=== PATIENT | male | born 1955 | race Caucasian/White ===

== ENCOUNTER 2021-03-03 15:07 | Emergency (ER) | payer OTHER, SELFPAY ==
[2021-03-03] VITALS (9 sets, daily range): BP systolic 141–174; BP diastolic 72–90; PULSE 47–63; RESP 16–18; TEMP 36.8; O2SAT 97–98; BMI 23.2
--- NOTE | 2021-03-03 15:39 | ED_ITS ---
Documented by User: MARGARETTE Uriostegui 03/05/21 07:04 HPI - Abdominal Pain General: Chief Complaint: Abdominal Pain Stated Complaint: ABD PAIN, CONSTIPATION Time Seen by Provider: 03/03/21 15:15 Source: patient Mode of arrival: ambulatory Limitations: no limitations History of Present Illness: HPI narrative: Patient is a very pleasant 65-year-old male who presents to ED today with a complaint of left-sided abdominal pain and changing caliber of his stools. Patient tells me he has had intermittent abdominal pains over the past 9 months. He states he has mentioned this to medical providers previously but nobody has ever wanted to do anything about it . He tells me he often feels like the left side of his abdomen is bloated. He gets some relief after a bowel movement. He tells me his bowel movements are pencil thin . He has not noticed any black or tarry stools. No obviously bloody stools. He does not complain of painful defecation. He reports over the last 2 weeks he has not had much of an appetite and has noticed weight loss. He is not having any vomiting. Patient tells me 12 years ago he had a colonoscopy in which several cancerous polyps were identified and removed. Patient tells me he was supposed to follow-up annually but works a lot and has not done so. MD elicited complaint: abdominal pain Pertinent past history: other (reports history of cancerous polyps ) Onset (ago): month(s) Pain Consistency: colicky Location: LLQ Severity: severe Quality: cramping and other (bloating) Radiation: none Migration to: no migration Exacerbating factors: eating Relieving factors: bowel movement Associated Symptoms: Reports bloating, GI cramping and other (weight loss ); Denies chills, dysuria, fever(s), hematochezia, hematemesis, melena, nausea and vomiting Review of Systems Const: Reports: change in appetite and change in weight; Denies: fever(s), chills, body aches, fatigue, malaise or night sweats Eyes: Denies: change in vision ENMT: Denies: throat pain or odynophagia Card: Denies: chest pain Resp: Denies: dyspnea GI: Reports: abdominal pain, bloating, GI cramping and other (weight loss ); Denies: nausea, vomiting, hematemesis, rectal swelling, hematochezia or melena : Denies: flank pain or dysuria Musc: Denies: neck pain, back pain, extremity pain or joint pain Skin/Breast: Denies: rash Neuro: Denies: headache(s) Physical Exam Const: COMMON NORMALS: no acute distress, average body habitus, patient oriented x3, no limitations, healthy appearing, alert and well nourished GENERAL APPEARANCE: cooperative ORIENTATION/CONSCIOUSNESS: Yes awake, Yes oriented to person, Yes oriented to place and Yes oriented to time HENMT: COMMON NORMALS: normocephalic and atraumatic HEAD & SCALP: normocephalic and atraumatic Resp: COMMON NORMALS: normal respiratory effort and clear to auscultation bilaterally AUSCULTATION: clear to auscultation bilaterally Cardio: COMMON NORMALS: regular rate and regular rhythm RATE: regular rate RHYTHM: regular rhythm GI: COMMON NORMALS: Normal to inspection, nondistended, normoactive bowel sounds present, Soft to palpation, No hepatosplenomegaly present and no masses PALPATION: Yes Soft to palpation, Yes Tenderness to palpation present (GI) (pain throughout L side of abdomen) and Yes No hepatosplenomegaly present Extremity: COMMON NORMALS: normal to inspection Neuro: COMMON NORMALS: patient oriented x3 SENSORIUM/ORIENTATION: Yes alert, Yes oriented to person, Yes oriented to place and Yes oriented to time Skin: COMMON NORMALS: no rashes or lesions noted GENERAL SKIN EXAM: no rashes or lesions noted Course Vital Signs: Vital signs: Vital Signs Temperature 98.2 F 03/03/21 15:23 Pulse Rate 54 L 03/03/21 19:46 Respiratory Rate 18 03/03/21 19:46 Blood Pressure 163/90 03/03/21 19:46 Pulse Oximetry 98 03/03/21 19:46 MDM - Abdominal Pain MDM Narrative: Medical decision making narrative: Care transferred to Henrry Fish PA-C pending remainder of labs and CT imaging. Plan will include urgent colonoscopy once/if patient stable for DC from ED. Lab Data: Labs: Lab Results 03/03/21 03/03/21 03/03/21 Range/Units 15:45 16:00 16:00 WBC 8.8 (4.0-10.0) 10^3/ uL RBC 4.98 (4.1-5.3) 10^6/u L Hgb 14.6 (11.7-16.6) g/dL Hct 45.2 (42.0-52.0) % MCV 90.8 (80-94) fl MCH 29.3 (28.0-34.0) pg MCHC 32.3 (30.0-36.0) g/dL RDW 13.2 (12.1-15.1) % Plt Count 226 (130-400) 10^3/c mm MPV 11.9 H (7.4-10.4) fL Neut % (Auto) 66.9 % Lymph % (Auto) 25.0 % Hodgeman % (Auto) 6.1 % Eos % (Auto) 1.4 % Baso % (Auto) 0.3 % Neut # (Auto) 5.88 (1.8-7.7) 10^3/u L Lymph # (Auto) 2.2 (0.8-4.8) 10^3/u L Hodgeman # (Auto) 0.5 (0.2-0.9) 10^3/u L Eos # (Auto) 0.1 (0.0-0.8) 10^3/u L Baso # (Auto) 0.0 (0.0-0.1) 10^3/u L Nucleated RBC % (a uto) 0 % Nucleated RBCs # 0.0 /100WBC Sodium 140 (136-145) mmol/L Potassium 4.4 (3.5-5.1) mmol/L Chloride 105 (98-107) mmol/L Carbon Dioxide 25 (22-29) mmol/L Anion Gap 14.4 (5-19) BUN 15 (8-23) mg/dL Creatinine 0.9 (0.7-1.2) mg/dL GFR Calculation 85.0 L (90-130) mL/min Glucose 89 (65-115) mg/dL Calculated Osmolal ity 290 (285-295) mOsm/k g Calcium 9.5 (8.5-10.5) mg/dL Total Bilirubin 0.2 (0.15-1.2) mg/dL AST 14 (0-40) U/L ALT 19 (0-41) U/L Alkaline Phosphata se 145 H (40-130) IU/L Total Protein 6.6 (6.6-8.7) g/dL Albumin 4.3 (3.5-5.2) g/dL Globulin 2.3 (1.3-4.6) g/dL Lipase 21 (13-60) U/L Urine Color Straw (Yellow) Urine Appearance Clear (CLEAR) Urine pH 7 (5-7) Ur Specific Gravit y 1.005 (1.005-1.030) Urine Protein Neg (Negative) Urine Glucose (UA) Norm (Normal) Urine Ketones Negative (Negative) Urine Blood Neg (Negative) Urine Nitrate Negative (Negative) Urine Bilirubin Neg (Negative) Urine Urobilinogen Norm (Negative) mg/dL Ur Leukocyte Kaitlyn ase Negative (Negative) Discharge Plan Discharge Patient Disposition: Home Clinical Impression: Abdominal pain Qualifiers: Abdominal location: left lower quadrant Qualified Code(s): R10.32 - Left lower quadrant pain Constipation Qualifiers: Constipation type: unspecified constipation type Qualified Code(s): K59.00 - Constipation, unspecified Condition: Stable Prescriptions: New ondansetron 4 mg tablet,disintegrating 4 mg PO Q8H PRN (Reason: nausea and vomiting) Qty: 20 RF: 0 Miralax 17 gram/dose powder 17 g PO DAILY PRN (Reason: constipation) Qty: 119 RF: 0 No Action Pacerone 200 mg tablet 200 mg PO DAILY RF: 0 lisinopril 20 mg tablet 20 mg PO DAILY RF: 0 Aspir-81 81 mg Tablet,Delayed Release (Dr/Ec) 81 mg PO DAILY RF: 0 diltiazem HCl 120 mg capsule,extended release 24hr 120 mg PO DAILY RF: 0 Eliquis 5 mg tablet 5 mg PO DAILY RF: 0 Discharge Orders: Discharge ED (Routine); Ordered 03/03/21 Ordered By: Henrry Fish Referrals: Jason Toscano MD [Primary Care Provider] - Discharge Diet: Advance as tolerated Discharge Activity: Increase activity as tolerated Patient Instructions: Abdominal Pain (ED), Opioid Safety Activity Restrictions/Additional Instructions: Follow-up with medical provider as directed in 5 days for reevaluation. Case management will be contacting you in the next several days to set up an appointm ent with general surgeon for colonoscopy. Sending you home with [facility] to help clear out bowels. Take medications as prescribed. Continue taking your daily stool softener as well to help with bowel movements. Make sure to drink plenty of fluids and stay hydrated. Return to the ER or your medical provider if condition worsens. Please read and understand discharge instructions. Thank you for choosing [facility] for your healthcare needs today. Please realize this is an emergency room and that we are providing you with a medical screening exam and this may not be complete and all inclusive of all the testing and or work up that you may need to determine your ailment or severity of your illness. It is very important that you follow up as instructed or that you return to the Emergency Department should you have concerns or if your condition changes or worsens in any way. Sign Out Sign Out Data: Patient Sign Out occurred on 03/03/21 at 17:09. Patient's care was discussed, and care was transferred from to MARGARETTE Clemens. Coding Level of Care Code ED Mineral Mixer for Chg Fwd Exam Detailed Documented by User: MARGARETTE Clemens 03/03/21 23:29 HPI - Abdominal Pain General: Chief Complaint: Abdominal Pain Stated Complaint: ABD PAIN, CONSTIPATION Time Seen by Provider: 03/03/21 15:15 Course Vital Signs: Vital signs: Vital Signs Temperature 98.2 F 03/03/21 15:23 Pulse Rate 54 L 03/03/21 19:46 Respiratory Rate 18 03/03/21 19:46 Blood Pressure 163/90 03/03/21 19:46 Pulse Oximetry 98 03/03/21 19:46 MDM - Abdominal Pain MDM Narrative: Medical decision making narrative: I took over patient case from Rosita Palacios the physician doctor assistant. She performed the initial history physical exam lab and imaging work-up. I took over patient case the CT of the abdomen was pending. Patient is a 65-year-old male comes to the ED with some abdominal pain and constipation. He has a history of having polyps's from his last colonoscopy 12 years ago and was told to have yearly colonoscopies, but patient has not had any colonoscopy over the last 12 years. He is currently having pencil thin stools but denies any blood or dark-colored stools. Patient appears nontoxic and in no acute distress. Patient has some tenderness to palpation of the abdomen on the left side. Vitals are stable. All labs were unremarkable. CT of abdomen pelvis showed no acute findings but did note an area of narrowing in the transverse colon near the splenic flexure. Radiologist thought it could be transient peristalsis but colonoscopy needed for further evaluation of possible lesion. I discussed CT findings with patient and told him that he needs to get a colonoscopy as soon as possible for further evaluation. I placed an order with case management for patient to be referred to general surgery for colonoscopy and I noted that patient should have one as soon as possible. Patient diagnosed with abdominal pain and constipation and he was discharged home with magnesium citrate and told to take that tonight or tomorrow to help with bowel movements. He was also sent home with a prescription for Zofran MiraLAX and Percocet for pain. I told patient follow-up with his PCP in 7 to 10 days reevaluation. Case management will be contacting him in the next several days set up an appointment with general surgery for colonoscopy. Return to ED precautions given. Patient steady with plan. Lab Data: Attestation: I reviewed the patient's lab results. Labs: Lab Results 03/03/21 03/03/21 03/03/21 Range/Units 15:45 16:00 16:00 WBC 8.8 (4.0-10.0) 10^3/ uL RBC 4.98 (4.1-5.3) 10^6/u L Hgb 14.6 (11.7-16.6) g/dL Hct 45.2 (42.0-52.0) % MCV 90.8 (80-94) fl MCH 29.3 (28.0-34.0) pg MCHC 32.3 (30.0-36.0) g/dL RDW 13.2 (12.1-15.1) % Plt Count 226 (130-400) 10^3/c mm MPV 11.9 H (7.4-10.4) fL Neut % (Auto) 66.9 % Lymph % (Auto) 25.0 % Hodgeman % (Auto) 6.1 % Eos % (Auto) 1.4 % Baso % (Auto) 0.3 % Neut # (Auto) 5.88 (1.8-7.7) 10^3/u L Lymph # (Auto) 2.2 (0.8-4.8) 10^3/u L Hodgeman # (Auto) 0.5 (0.2-0.9) 10^3/u L Eos # (Auto) 0.1 (0.0-0.8) 10^3/u L Baso # (Auto) 0.0 (0.0-0.1) 10^3/u L Nucleated RBC % (a uto) 0 % Nucleated RBCs # 0.0 /100WBC Sodium 140 (136-145) mmol/L Potassium 4.4 (3.5-5.1) mmol/L Chloride 105 (98-107) mmol/L Carbon Dioxide 25 (22-29) mmol/L Anion Gap 14.4 (5-19) BUN 15 (8-23) mg/dL Creatinine 0.9 (0.7-1.2) mg/dL GFR Calculation 85.0 L (90-130) mL/min Glucose 89 (65-115) mg/dL Calculated Osmolal ity 290 (285-295) mOsm/k g Calcium 9.5 (8.5-10.5) mg/dL Total Bilirubin 0.2 (0.15-1.2) mg/dL AST 14 (0-40) U/L ALT 19 (0-41) U/L Alkaline Phosphata se 145 H (40-130) IU/L Total Protein 6.6 (6.6-8.7) g/dL Albumin 4.3 (3.5-5.2) g/dL Globulin 2.3 (1.3-4.6) g/dL Lipase 21 (13-60) U/L Urine Color Straw (Yellow) Urine Appearance Clear (CLEAR) Urine pH 7 (5-7) Ur Specific Gravit y 1.005 (1.005-1.030) Urine Protein Neg (Negative) Urine Glucose (UA) Norm (Normal) Urine Ketones Negative (Negative) Urine Blood Neg (Negative) Urine Nitrate Negative (Negative) Urine Bilirubin Neg (Negative) Urine Urobilinogen Norm (Negative) mg/dL Ur Leukocyte Kaitlyn ase Negative (Negative) Imaging Data ^: CT Abd/Pel: Attestation: I personally reviewed and interpreted this imaging study as follows: Radiologist's impression: [facility] [address] [place] [address] CT Scan Report Signed Patient: Luke Andrade Unit #: [id number] : [id number] ct#:[id number] Age/Sex: 65 / M ADM Date: 03/03/21 Loc: ER Room/Bed: Attending Dr: Ordering Provider/Ordering MD: Rosita Palacios Date of Service: 03/03/21 Procedure(s): CT abdomen pelvis w con* [id number] Accession Number(s): [id number] Report Number: [id number] PROCEDURE INFORMATION: Exam: CT Abdomen And Pelvis With Contrast Exam date and time: 03/03/2021 3:39 PM Age: 65 years old Clinical indication: Nausea; Abdominal pain; Localized; Left lower quadrant (llq); Prior surgery; Additional info: L abdominal pain; Change in caliber of stools TECHNIQUE: Imaging protocol: Computed tomography of the abdomen and pelvis with contrast. Radiation optimization: All CT scans at this facility use at least one of these dose optimization techniques: automated exposure control; mA and/or kV adjustment per patient size (includes targeted exams where dose is matched to clinical indication); or iterative reconstruction. Contrast material: OMNI 300; Contrast volume: 95 ml; Contrast route: INTRAVENOUS (IV); COMPARISON: No relevant prior studies available. RADIATION DOSE METRICS: Total DLP (mGy-cm): 1308.84 FINDINGS: Liver: Subcentimeter low-attenuation of the left hepatic lobe, too small to characterize on CT, most likely a small cyst. Gallbladder and bile ducts: Normal. No calcified stones. No ductal dilation. Pancreas: Normal. No ductal dilation. Spleen: Normal. No splenomegaly. Adrenal glands: Normal. No mass. Kidneys and ureters: 1 cm exophytic simple cyst along the mid aspect of the left kidney. Additional subcentimeter cysts are scattered within both kidneys. Stomach and bowel: Colonic diverticulosis without findings to suggest acute diverticulitis. There is focal narrowing in the transverse colon at the splenic flexure series 2, image 21. No evidence of obstruction. Appendix: No evidence of appendicitis. Intraperitoneal space: Unremarkable. No free air. No significant fluid collection. Vasculature: Moderate scattered calcified and noncalcified atherosclerotic plaque noted within the abdominal aorta and its distal branches. No significant narrowing or occlusion. Lymph nodes: Unremarkable. No enlarged lymph nodes. Urinary bladder: Mild circumferential wall thickening of the bladder. There is no perivesicular inflammation. The prostate is enlarged. Findings likely reflect sequela of chronic bladder outlet obstruction. Reproductive: See Urinary bladder finding. Bones/joints: No acute fracture. Soft tissues: Suspected sequela of right inguinal hernia repair. CT/CT abdomen pelvis w con* [id number] IMPRESSION: 1. No acute abdominal/pelvic findings. Colonic diverticulosis without findings to suggest acute diverticulitis. 2. There is focal narrowing in the transverse colon at the splenic flexure. Most likely this relates to transient peristalsis, however, given clinical history please ensure patient is up to date on colonoscopy to exclude underlying lesion. 3. Enlarged prostate and mild circumferential bladder wall thickening, imaging appearance is suggestive of chronic bladder outlet obstruction. COMMENTS: Consistent with the [employer]'s Incidental Findings Committee white paper (J Am Yaneth Radiol 2018): Any incidental renal lesion less than 1 cm or classified as too small to characterize, or any incidental cystic renal lesion characterized as simple-appearing, is likely benign. No follow-up imaging is recommended for these lesions per consensus recommendations based on imaging criteria. Radiation Dose CTDIVOL = (mGy): DLP = 1308.84 (mGy-cm) Dictated By: Uriah Conway DO Signed By: Uriah Conway DO Signed Date/Time: 03/03/211823 DD/ 22 Discharge Plan Discharge Patient Disposition: Home Clinical Impression: Abdominal pain Qualifiers: Abdominal location: left lower quadrant Qualified Code(s): R10.32 - Left lower quadrant pain Constipation Qualifiers: Constipation type: unspecified constipation type Qualified Code(s): K59.00 - Constipation, unspecified Condition: Stable Prescriptions: New ondansetron 4 mg tablet,disintegrating 4 mg PO Q8H PRN (Reason: nausea and vomiting) Qty: 20 RF: 0 Miralax 17 gram/dose powder 17 g PO DAILY PRN (Reason: constipation) Qty: 119 RF: 0 No Action Pacerone 200 mg tablet 200 mg PO DAILY RF: 0 lisinopril 20 mg tablet 20 mg PO DAILY RF: 0 Aspir-81 81 mg Tablet,Delayed Release (Dr/Ec) 81 mg PO DAILY RF: 0 diltiazem HCl 120 mg capsule,extended release 24hr 120 mg PO DAILY RF: 0 Eliquis 5 mg tablet 5 mg PO DAILY RF: 0 Discharge Orders: Discharge ED (Routine); Ordered 03/03/21 Ordered By: Henrry Fish Referrals: Jason Toscano MD [Primary Care Provider] - Discharge Diet: Advance as tolerated Discharge Activity: Increase activity as tolerated Patient Instructions: Abdominal Pain (ED), Opioid Safety Activity Restrictions/Additional Instructions: Follow-up with medical provider as directed in 5 days for reevaluation. Case management will be contacting you in the next several days to set up an appointment with general surgeon for colonoscopy. Sending you home with mag citrate to help clear out bowels. Take medications as prescribed. Continue taking your daily stool softener as well to help with bowel movements. Make sure to drink plenty of fluids and stay hydrated. Return to the ER or your medical provider if condition worsens. Please read and understand discharge instructions. Thank you for choosing [facility] for your healthcare needs today. Please realize this is an emergency room and that we are providing you with a medical screening exam and this may not be complete and all inclusive of all the testing and or work up that you may need to determine your ailment or severity of your illness. It is very important that you follow up as instructed or that you return to the Emergency Department should you have concerns or if your condition changes or worsens in any way. Sign Out Sign Out Data: Patient Sign Out occurred on 03/03/21 at 17:09. Patient's care was discussed, and care was transferred from to MARGARETTE Clemens. Coding Level of Care Code ED Mineral Mixer for Chg Fwd Exam Detailed
[2021-03-03] MEDS: morphine 4 mg/mL SDV 1 mL IVP (15:55)
[2021-03-03] MEDS: ondansetron 2 mg/ML SDV 2 mL 4 MG IVP (15:57)
[2021-03-03 16:08] LABS: Basophils % 0.3 %; Eosinophils # 0.1 10^3/uL (0.0-0.8); Eosinophils % 1.4 %; Hematocrit 45.2 % (42.0-52.0); Hemoglobin 14.6 g/dL (11.7-16.6); Lymphocytes # 2.2 10^3/uL (0.8-4.8); Mean Corpuscular HGB Conc 32.3 g/dL (30.0-36.0); Mean Corpuscular Hemoglobin 29.3 pg (28.0-34.0); Mean Corpuscular Volume 90.8 fl (80-94); Mean Platelet Volume 11.9 fL (7.4-10.4); Monocytes # 0.5 10^3/uL (0.2-0.9); Monocytes % 6.1 %; Neutrophils # 5.88 10^3/uL (1.8-7.7); Neutrophils % 66.9 %; Nucleated Red Blood Cells % 0 %; Platelet Count 226 10^3/cmm (130-400); Red Blood Count 4.98 10^6/uL (4.1-5.3); Red Cell Distribution Width 13.2 % (12.1-15.1); White Blood Count 8.8 10^3/uL (4.0-10.0)
[2021-03-03 16:12] LABS: Add Urine Microscopic? NO; Charge for UA Resulting for Rev
[2021-03-03 16:24] LABS: Bilirubin Urine Neg (Negative); Blood Urine Neg (Negative); Glucose Urine UA Norm (Normal); Ketones Urine Negative (Negative); Leukocyte Esterase Urine Negative (Negative); Nitrate Urine Negative (Negative); Protein Urine Neg (Negative); Specific Gravity, Urine 1.005 (1.005-1.030); Urine Appearance Clear (CLEAR); Urine Color Straw (Yellow); Urobilinogen Urine Norm (Negative); pH Urine 7 (5-7)
[2021-03-03 16:31] LABS: Alanine Aminotransferase 19 U/L (0-41); Albumin Level 4.3 g/dL (3.5-5.2); Alkaline Phosphatase 145 IU/L (40-130); Anion Gap 14.4 (5-19); Aspartate Amino Transferase 14 U/L (0-40); Blood Urea Nitrogen 15 mg/dL (8-23); Calcium 9.5 mg/dL (8.5-10.5); Carbon Dioxide 25 mmol/L (22-29); Chloride 105 mmol/L (98-107); Creatinine Clr Calc Pharmacy 96.3605; Globulin 2.3 g/dL (1.3-4.6); Glucose 89 mg/dL (65-115); Lipase 21 U/L (13-60); Osmolality Calculated 290 mOsm/kg (285-295); Potassium 4.4 mmol/L (3.5-5.1); Sodium 140 mmol/L (136-145); Total Bilirubin 0.2 mg/dL (0.15-1.2); Total Protein 6.6 g/dL (6.6-8.7)
[2021-03-03] MEDS: iohexol 300 mg/mL 100 mL Btl IV (17:37)
[2021-03-03] MEDS: acetaminophen 1,000 MG/100 ML PIGGYBACK 400 MG IV (18:07)
[2021-03-03] MEDS: oxyCODONE-APAP 5-325 mg Tablet 1 TAB PO (19:12)
[2021-03-03] MEDS: magnesium citrate Btl 296 mL PO (19:46)
--- NOTE | 2021-03-04 09:30 | DCPLANNER ---
product mgmt dev manager had message to schedule a follow up appointment for patient with general surgery. product mgmt dev manager emailed patients information to both Katia and Radha at [facility] General Surgery. Patients information will be printed and reviewed. Clinic will call patient with appointment information.
--- NOTE | 2021-03-05 15:32 | DCPLANNER ---
Patient followed up with Dr. Toscano and not general surgery - patient did attend appointment scheduled with Dr. Toscano.
== END 2021-03-03 19:52 | disposition home or self-care (01) ==
PROVIDERS: Physician Assistant; Emergency Provider Physician Assistant; PCP Internal Medicine
DX: R10.32 Left lower quadrant pain (principal); K59.00 Constipation, unspecified; Z79.01 Long term (current) use of anticoagulants; Z79.82 Long term (current) use of aspirin
CPT/HCPCS: 74177; 80053; 81003; 83690; 85025; 96374; 96375; 99284; J2270; J2405; Q9967

== ENCOUNTER → 2021-03-05 13:36 | Outpatient (BNVA) | payer MEDICAID, SELFPAY | PROVIDERS: PCP Internal Medicine; Visit Provider Internal Medicine | DX: Z01.812 Encounter for preprocedural laboratory examination (principal); R63.4 Abnormal weight loss; R10.32 Left lower quadrant pain; K59.00 Constipation, unspecified; Z20.822 Contact with and (suspected) exposure to COVID-19 | CPT/HCPCS: 87635 ==

== ENCOUNTER 2021-03-07 08:23 | Day surgery (SDC) | payer OTHER, SELFPAY ==
[2021-03-06 12:37] VITALS: BMI 22.4
--- NOTE | 2021-03-07 08:44 | ANES.PREANE2 ---
Pre-Anesthetic Assessment Pre-Anesthetic Assessment: Height/Weight: Height 1.88 m Weight 79.379 kg Preop Diagnosis: Abd pain Proposed Procedure: Operation Date: 03/07/21 11:15 Proposed Procedures p EGD/colon 01490 [id number] R63.4(Not Applicable) - Jason Toscano MD s Colonoscopy(Not Applicable) - Jason Toscano MD Familial anesthetic complications: none Was Beta Sukhjinder taken within 24 hours: N/A Was Clonidine taken within 24 hours: N/A Last intake: > 8 hrs Social: Social History: Tobacco and No alcohol Exam: Pre-Anes Outpt Exam: alert, oriented x 3, clear to auscultation bilaterally and regular rate & rhythm Airway: Cervical ROM: WNL MP: 2 Dentition: Other ( bad teeth in my back ) CV/HEM: CV/HEM: Afib (off eliquis since 3 days ago) Metabolic: Comments: unexplained weight loss, hypoglycemia episodes Anesthetic Plan: ASA status: 3 Anesthesia: MAC Risk of > 500 ml blood loss (7ml/kg in children): No PFSH Anesthesia PFSH: Social History (Updated 03/05/21 @ 13:01 by KAELA Alvarenga) Smoking and tobacco status: current every day smoker Alcohol intake: never Adopted: No Marital status: / Number of children: 4 service: Yes History of recent travel: No Data Anesthesia Cardiac Studies: No Data to Display
--- NOTE | 2021-03-07 09:42 | P.HP_ITS ---
Same Day Surgery H&P Indication for Procedure/HPI DATE OF PROCEDURE: March 07, 2021 CHIEF COMPLAINT/INDICATIONFOR SURGICAL PROCEDURE: Abdominal pain and weight loss PREOP DIAGNOSIS: Abd pain PLANNED PROCEDRUE: Operation Date: 03/07/21 11:15 Proposed Procedures p EGD/colon 15683 [id number] R63.4(Not Applicable) - Jason Toscano MD s Colonoscopy(Not Applicable) - Jason Toscano MD Medications/Allergies* Home Medications Medication Instructions Recorded Confirmed Type amiodarone [Pacerone] 200 mg PO DAILY 03/03/21 03/06/21 History apixaban [Eliquis] 5 mg PO DAILY 03/03/21 03/06/21 History aspirin [Aspir-81] 81 mg PO DAILY 03/03/21 03/06/21 History diltiazem HCl 120 mg PO DAILY 03/03/21 03/06/21 History lisinopril 20 mg PO DAILY 03/03/21 03/06/21 History Allergies/Adverse Reactions Allergy/AdvReac Type Severity Reaction Status Date / Time aspirin Allergy Unknown Verified 03/05/21 12:55 Pertinent History/Comorbid Conditions* Social History Smoking and tobacco status: current every day smoker Alcohol intake: never Adopted: No Marital status: / Number of children: 4 service: Yes History of recent travel: No Pertinent Exam Findings alert, oriented x 3, clear to auscultation bilaterally, regular rate & rhythm, operative site marked and procedure specific exam findings Recommendations Surgery/Procedure today Coding Level of Care Code Acute Environmental Auditor for Mika Mac
[2021-03-07 09:56] VITALS: BP 131/91; PULSE 64; RESP 18; TEMP 36; O2SAT 99
[2021-03-07] MEDS: sodium chloride 0.9% 1,000 ML 30 ML IV (10:19)
[2021-03-07 11:33] VITALS: BP 101/60; PULSE 52; RESP 16; TEMP 36.6; O2SAT 99
[2021-03-07 11:50] VITALS: BP 106/71; PULSE 52; RESP 16; O2SAT 97
--- NOTE | 2021-03-07 18:22 | ANE.PACU2 ---
Inpatient post-anesthesia follow up: Airway intact: Yes Vital signs: Temperature 97.9 F Pulse Rate 52 Respiratory Rate 16 Blood Pressure 106/71 Pulse Oximetry 97 Oxygen Delivery Me thod Nasal Cannula Oxygen Flow Rate 4 Fraction of Inspir ed Oxygen Hydration adequate: Yes Nausea and vomiting: No Pain level: 1 Mental status: Baseline
--- NOTE | 2021-03-07 18:23 | ANE.PACU2 ---
Inpatient post-anesthesia follow up: Airway intact: Yes Vital signs: Temperature 97.9 F Pulse Rate 52 Respiratory Rate 16 Blood Pressure 106/71 Pulse Oximetry 97 Oxygen Delivery Me thod Nasal Cannula Oxygen Flow Rate 4 Fraction of Inspir ed Oxygen Hydration adequate: Yes Nausea and vomiting: No Pain level: 2 Mental status: Baseline
[2021-03-08 09:05] LABS: H. Pylori / CLO Test Positive
== END 2021-03-07 12:20 | disposition home or self-care (01) ==
PROVIDERS: PCP Internal Medicine; Visit Provider Internal Medicine
PROC: 0DJ08ZZ Inspection of Upper Intestinal Tract, Via Natural or Artificial Opening Endoscopic (ICD-10-PCS; CPT 43235; principal; 2021-03-07 11:15)
PROC: 0DJD8ZZ Inspection of Lower Intestinal Tract, Via Natural or Artificial Opening Endoscopic (ICD-10-PCS; CPT 45378; 2021-03-07 11:15)
DX: R10.9 Unspecified abdominal pain (principal); R63.4 Abnormal weight loss; Z68.22 Body mass index [BMI] 22.0-22.9, adult; Z79.82 Long term (current) use of aspirin; F17.210 Nicotine dependence, cigarettes, uncomplicated; K29.70 Gastritis, unspecified, without bleeding; I48.91 Unspecified atrial fibrillation; Z79.01 Long term (current) use of anticoagulants
CPT/HCPCS: 43239; 45378; 87077; 96360; J7030

== ENCOUNTER 2021-06-11 13:18 | Emergency (ER) | payer OTHER, SELFPAY ==
[2021-06-11 13:28] VITALS: BP 158/78; PULSE 59; RESP 16; TEMP 36.5; O2SAT 100
[2021-06-11 14:01] VITALS: BP 160/84; PULSE 62; RESP 18; O2SAT 100
--- NOTE | 2021-06-11 14:46 | ED_ITS ---
HPI - Abdominal Pain General: Chief Complaint: Abdominal Pain Stated Complaint: Abdominal Pain around Left side to back Time Seen by Provider: 06/11/21 14:46 History of Present Illness: HPI narrative: Mr. Andrade is a 65-year-old gentleman with significant past medical history of atrial fibrillation, hypertension, delayed colonic emptying who presents to the emergency department due to left-sided abdominal pain. Symptom onset was a number of weeks ago and initially he just mild aching in his back which he thought was related to muscle strain. This is subsequently worsened and now wraps around his left flank and radiates towards the groin. Symptoms are not particularly worse by any activity however are mildly improved by laying down. No testicular pain or penile discharge. No urinary symptoms. Overall the course of symptoms has been worsening. Intensity is moderate to severe. He was seen at a clinic earlier today and referred here for concern over nephrolithiasis. He cannot recall though may have been told that he has a history of kidney stones, no recent stones that he recalls. Review of Systems General: Reports: 10 or more systems reviewed and unremarkable except in HPI and below PFSH ED PFSH: Social History Smoking and tobacco status: current every day smoker Alcohol intake: never Adopted: No Marital status: / Number of children: 4 service: Yes History of recent travel: No Physical Exam Narrative: EXAM NARRATIVE: GENERAL/CONSTITUTIONAL - well-appearing. Mildly uncomfortable appearing Eyes -no scleral icterus, no conjunctival injection ENMT - Atraumatic external nose and ears. Moist mucous membranes NECK - supple. trachea midline CARDIOVASCULAR - regular rate and rhythm. RESPIRATORY -clear to auscultation bilaterally. ABDOMEN/GI - left-sided abdominal tenderness to palpation. No CVA tenderness. No left lower quadrant or suprapubic tenderness palpation. No tenderness to percussion or evidence of peritonitis MSK - Extremities without obvious deformity or tenderness to palpation SKIN - Warm, Dry NEURO - alert and appropriately oriented. Moves all extremities equally. Course ED course: - Patient was seen and evaluated by me at bedside - Patient placed on cardiac monitors, IV access obtained - Initial evaluation notable for exam as noted above. Nontoxic. No peritonitis. -Symptom treatment ordered - Labs notable for no significant hematologic or metabolic abnormality. Blood noted on urinalysis dipstick - Imaging notable for left perinephric stranding and mild thickening of the distal left ureter - Upon serial reexamination after treatment the patient was improved - Based on patient history, evaluation, labs, and imaging as interpreted the mos t likely cause of the patient's condition is unclear abdominal pain, urinalysis is somewhat unimpressive for CT findings, it is possible that the patient recently passed kidney stone or a mild more insidious urinary infection is present. - The results of ED evaluation were discussed with the patient including prescriptions and/or symptomatic cares (if applicable) including appropriate and responsible use, followup plan, and return precautions. The patient verbalized understanding and felt safe for discharge. - Patient discharged in satisfactory condition. Vital Signs: Vital signs: Vital Signs Temperature 98.1 F 06/11/21 17:42 Pulse Rate 65 06/11/21 17:42 Respiratory Rate 17 06/11/21 17:42 Blood Pressure 163/81 06/11/21 17:42 Pulse Oximetry 100 06/11/21 17:42 MDM - Abdominal Pain Medical Records: Attestation: I reviewed the patient's medical records. Lab Data: Attestation: I reviewed the patient's lab results. Labs: Lab Results 06/11/21 06/11/21 06/11/21 14:02 15:05 15:05 WBC 8.9 10^3/uL 10^3/ uL (4.0-10.0) RBC 4.83 10^6/uL 10^6 /uL (4.1-5.3) Hgb 14.5 g/dL g/dL (11.7-16.6) Hct 44.3 % % (42.0-52.0) MCV 91.7 fl fl (80-94) MCH 30.0 pg pg (28.0-34.0) MCHC 32.7 g/dL g/dL (30.0-36.0) RDW 14.3 % % (12.1-15.1) Plt Count 215 10^3/cmm 10^3 /cmm (130-400) MPV 12.2 fL H fL (7.4-10.4) Neut % (Auto) 67.2 % % Lymph % (Auto) 22.9 % % [place] % (Auto) 7.7 % % Eos % (Auto) 1.2 % % Baso % (Auto) 0.6 % % Neut # (Auto) 6.00 10^3/uL 10^3 /uL (1.8-7.7) Lymph # (Auto) 2.1 10^3/uL 10^3/ uL (0.8-4.8) [place] # (Auto) 0.7 10^3/uL 10^3/ uL (0.2-0.9) Eos # (Auto) 0.1 10^3/uL 10^3/ uL (0.0-0.8) Baso # (Auto) 0.1 10^3/uL 10^3/ uL (0.0-0.1) Nucleated RBC % (a uto) 0 % % Nucleated RBCs # 0.0 /100WBC /100W BC Sodium 140 mmol/L mmol/L (136-145) Potassium 3.9 mmol/L mmol/L (3.5-5.1) Chloride 104 mmol/L mmol/L (98-107) Carbon Dioxide 24 mmol/L mmol/L (22-29) Anion Gap 15.9 (5-19) BUN 13 mg/dL mg/dL (8-23) Creatinine 0.8 mg/dL mg/dL (0.7-1.2) GFR Calculation 97.3 mL/min mL/mi n (90-130) Glucose 86 mg/dL mg/dL (65-115) Calculated Osmolal ity 289 mOsm/kg mOsm/ kg (285-295) Calcium 8.6 mg/dL mg/dL (8.5-10.5) Total Bilirubin 0.2 mg/dL mg/dL (0.15-1.2) AST 26 U/L U/L (0-40) ALT 26 U/L U/L (0-41) Alkaline Phosphata se 136 IU/L H IU/L (40-130) Total Protein 7.1 g/dL g/dL (6.6-8.7) Albumin 4.3 g/dL g/dL (3.5-5.2) Globulin 2.8 g/dL g/dL (1.3-4.6) Lipase 21 U/L U/L (13-60) Urine Color Yellow (Yellow) Urine Appearance Clear (CLEAR) Urine pH 7 (5-7) Ur Specific Gravit y 1.005 (1.005-1.030) Urine Protein Neg (Negative) Urine Glucose (UA) Norm (Normal) Urine Ketones Negative (Negative) Urine Blood 2+ H (Negative) Urine Nitrate Negative (Negative) Urine Bilirubin Neg (Negative) Urine Urobilinogen Norm mg/dL mg/dL (Negative) Ur Leukocyte Kaitlyn ase Negative (Negative) Urine RBC 0-4 /hpf H /hpf (0-2) Urine WBC None /hpf /hpf (0-5) Ur Squamous Epith Cells None /hpf /hpf (0-5) Amorphous Sediment Not Reportable Urine Bacteria None /hpf /hpf (NONE) Urine Mucus Trace /hpf /hpf Discharge Plan Discharge Patient Disposition: Home Clinical Impression: Abdominal pain Condition: Stable Prescriptions: New cephalexin 500 mg capsule 500 mg PO Q6H 10 Days Qty: 40 RF: 0 oxycodone 5 mg tablet 5 mg PO Q4H PRN (Reason: pain) Qty: 8 RF: 0 No Action amiodarone [Pacerone] 200 mg tablet 200 mg PO DAILY RF: 0 lisinopril 20 mg tablet 20 mg PO DAILY RF: 0 aspirin 81 mg Tablet,Delayed Release (Dr/Ec) 81 mg PO DAILY RF: 0 diltiazem HCl 120 mg capsule,extended release 24hr 120 mg PO DAILY RF: 0 Eliquis 5 mg tablet 5 mg PO DAILY RF: 0 pantoprazole 40 mg tablet,delayed release (DR/EC) 40 mg PO DAILY Qty: 90 RF: 8 Linzess 72 mcg capsule 72 mcg PO DAILY Qty: 30 RF: 6 Discharge Orders: Discharge ED (Routine); Ordered 06/11/21 Ordered By: Oren Summers Referrals: Jason Toscano MD [Primary Care Provider] - Discharge Diet: Usual diet Discharge Activity: Resume usual activity Patient Instructions: Abdominal Pain (ED), Opioid Safety Activity Restrictions/Additional Instructions: Thank you for visiting the emergency department. You were seen and evaluated for abdominal pain. The exact cause of your pain is unclear though you were found to have inflammation around the ureter. This may be be due to a recently passed kidney stone or an infection though we do not see secondary signs of infection. Please follow-up with your primary care provider. Please return to the emergency department for uncontrolled pain, worsening symptoms, or anything else that you are concerned about and feel needs emergency department evaluation. Coding Level of Care Code ED Regulatory Affairs Strategy Specialist for Mika Mac
[2021-06-11 14:59] LABS: Add Urine Microscopic? YES; Bilirubin Urine Neg (Negative); Blood Urine 2+ (Negative); Glucose Urine UA Norm (Normal); Ketones Urine Negative (Negative); Leukocyte Esterase Urine Negative (Negative); Nitrate Urine Negative (Negative); Protein Urine Neg (Negative); Specific Gravity, Urine 1.005 (1.005-1.030); Urine Appearance Clear (CLEAR); Urine Color Yellow (Yellow); Urobilinogen Urine Norm (Negative); pH Urine 7 (5-7)
[2021-06-11 15:09] LABS: Basophils # 0.1 10^3/uL (0.0-0.1); Basophils % 0.6 %; Eosinophils # 0.1 10^3/uL (0.0-0.8); Eosinophils % 1.2 %; Hematocrit 44.3 % (42.0-52.0); Hemoglobin 14.5 g/dL (11.7-16.6); Lymphocytes # 2.1 10^3/uL (0.8-4.8); Lymphocytes % 22.9 %; Mean Corpuscular HGB Conc 32.7 g/dL (30.0-36.0); Mean Corpuscular Volume 91.7 fl (80-94); Mean Platelet Volume 12.2 fL (7.4-10.4); Monocytes # 0.7 10^3/uL (0.2-0.9); Monocytes % 7.7 %; Neutrophils % 67.2 %; Nucleated Red Blood Cells % 0 %; Platelet Count 215 10^3/cmm (130-400); Red Blood Count 4.83 10^6/uL (4.1-5.3); Red Cell Distribution Width 14.3 % (12.1-15.1); White Blood Count 8.9 10^3/uL (4.0-10.0)
--- NOTE | 2021-06-11 15:28 | CT_ITS ---
WS: [id number] CT ABDOMEN AND PELVIS NONCONTRAST HISTORY: flank pain, hematuria TECHNIQUE: Imaging performed through the abdomen and pelvis. Coronal and sagittal reformats are submi tted. All CT scans at [facility] use at least one of these dose optimization techniques: auto mated exposure control; mA and/or kV adjustment per patient size (includes targeted exams where dose is matched to clinical indication); or iterative reconstruction. DLP: 795.82 mGy.cm COMPARISON: 03/03/2021 Lower thorax: Lung bases are clear. Visualized heart is normal. No hiatal hernia. Liver: Normal size liver. No mass or bile duct dilatation. Gallbladder: Normal gallbladder. Pancreas: Normal size and attenuation. Normal pancreatic duct. No pancreatitis or mass. Spleen: Normal. Adrenal glands: Mild bilateral adrenal hyperplasia, slightly greater on the LEFT than the RIGHT. Right kidney: Normal size kidney with no mass or hydronephrosis. Left kidney: Mild perinephric stranding around the LEFT kidney is new since the prior study. Exophyti c 10 mm cyst from the mid kidney. There is a very minimally prominent LEFT renal pelvis as compared t o the prior examination. No ureteral dilatation. There is very mild prominence and wall thickening of the distal LEFT ureter just prior to the UV junction. There is no stone identified. Aorta: Mild atherosclerosis abdominal aorta with no aneurysm. Very small mesenteric and retroperitoneal lymph nodes. No adenopathy. GI tract: The appendix is normal. Mild diffuse fecal retention and constipation. Several diverticula in the sigmoid colon with no acute diverticulitis. Abdominal wall: Negative. No hernia. Pelvis: Mildly well-distended urinary bladder. There is mild diffuse wall thickening of the urinary b ladder but no discrete mass. Prostate gland is mildly enlarged encroaching into the bladder. Osseous structures: Unremarkable. CT/CT kidney stone 95099 IMPRESSION: 1. Mild LEFT perinephric stranding and mild thickening of the distal LEFT uret er near the UV junction. No obstructing stone or mass identified on this unenha nced study. Consider pyelonephritis as a possible etiology. Recently passed sto ne is also a possibility. 2. Mild diffuse bladder wall thickening may be due to outlet obstruction from the bladder. 3. Normal appendix.
[2021-06-11] MEDS: ondansetron 2 mg/ML SDV 2 mL 4 MG IVP (15:29)
[2021-06-11] MEDS: morphine 4 mg/mL SDV 1 mL IVP (15:29)
[2021-06-11] MEDS: sodium chloride 0.9% 1,000 ML 999 ML IV (15:29)
[2021-06-11 15:47] LABS: Alanine Aminotransferase 26 U/L (0-41); Albumin Level 4.3 g/dL (3.5-5.2); Alkaline Phosphatase 136 IU/L (40-130); Aspartate Amino Transferase 26 U/L (0-40); Blood Urea Nitrogen 13 mg/dL (8-23); Calcium 8.6 mg/dL (8.5-10.5); Carbon Dioxide 24 mmol/L (22-29); Chloride 104 mmol/L (98-107); Globulin 2.8 g/dL (1.3-4.6); Glomerular Filtration Rate 97.3 mL/min (90-130); Glucose 86 mg/dL (65-115); Lipase 21 U/L (13-60); Osmolality Calculated 289 mOsm/kg (285-295); Sodium 140 mmol/L (136-145); Total Bilirubin 0.2 mg/dL (0.15-1.2); Total Protein 7.1 g/dL (6.6-8.7)
[2021-06-11 15:48] LABS: Anion Gap 15.9 (5-19); Potassium 3.9 mmol/L (3.5-5.1)
[2021-06-11 16:02] LABS: RBC Urine 0-4 /hpf (0-2)
[2021-06-11 16:03] LABS: Add Urine Culture? No; Mucus Urine TRACE /hpf
[2021-06-11 17:42] VITALS: BP 163/81; PULSE 65; RESP 17; TEMP 36.7; O2SAT 100
== END 2021-06-11 17:45 | disposition home or self-care (01) ==
PROVIDERS: Emergency Provider Emergency Medicine; PCP Internal Medicine
DX: R10.32 Left lower quadrant pain (principal); I10 Essential (primary) hypertension; Z79.82 Long term (current) use of aspirin; Z79.01 Long term (current) use of anticoagulants; F17.210 Nicotine dependence, cigarettes, uncomplicated
CPT/HCPCS: 74176; 80053; 81001; 83690; 85025; 96361; 96374; 96375; 99283; J2270; J2405; J7030

== ENCOUNTER 2021-09-08 19:59 | Emergency (ER) | payer MEDICARE, MEDICAID, SELFPAY ==
[2021-09-08 20:01] VITALS: BP 197/92; PULSE 70; RESP 18; TEMP 36.8; O2SAT 98; BMI 24.1
--- NOTE | 2021-09-08 20:44 | W.ED.HA ---
Documented by User: Oren Summers MD 09/11/21 01:19 HPI - Headache General: Chief Complaint: Headache Stated Complaint: HYPERTENSION Time Seen by Provider: 09/08/21 20:44 History of Present Illness: Mr. Andrade is a 66-year-old gentleman with complex past medical history including history of bradycardia, intermittent arrhythmia with atrial fibrillation resulting in need for ablation who underwent ablation on 09/02 now presenting due to symptomatic hypotension. He reports prior to the procedure being on amiodarone, diltiazem, and lisinopril. He has not had change to these medications, per direction physician. Apparently he tolerated the procedure well and was doing well on postop day one to however since that time he has had increased difficulty with high blood pressure. He endorses waking up with blood pressures in the high one eighties to two hundreds systolic and diastolics greater than one hundred. Additionally throughout the day he notes this. He has increased lisinopril to multiple times per day and has not had significant relief. Associated with these hypertension episodes are lightheadedness and headache. Initially at times he gets chest discomfort. He also has developed left back and flank pain. Intensity of symptoms is moderate when present. Course has persisted. No other significant changes in health, medication, exacerbating, or relieving factors identified. Procedure performed by Dr Handy MD with EP at [facility]. MD elicited complaint: headache Pertinent past history: other Onset (ago): day(s) Location: frontal Severity: moderate Quality & Timing: aching and throbbing Exacerbating factors: none Relieving factors: nothing Context: other Review of Systems General: Reports: 10 or more systems reviewed and unremarkable except in HPI and below PFSH ED PFSH: Medical History Atrial fibrillation Surgical History History of cardiac radiofrequency ablation Social History Smoking and tobacco status: former smoker Alcohol intake: never Adopted: No Marital status: / Number of children: 4 service: Yes History of recent travel: No Physical Exam Const: COMMON NORMALS: patient oriented x3 and alert GENERAL APPEARANCE: cooperative and well developed HENMT: COMMON NORMALS: normocephalic and atraumatic HEAD & SCALP: normocephalic and atraumatic Eye: COMMON NORMALS: conjunctivae normal CONJUNCTIVA: Yes conjunctivae normal SCLERA: sclerae normal Neck/C-Spine: COMMON NORMALS: supple GENERAL: Yes trachea midline Resp: COMMON NORMALS: normal respiratory effort EFFORT & INSPECTION: Yes able to speak in complete sentences Cardio: COMMON NORMALS: regular rate and regular rhythm RATE: regular rate RHYTHM: regular rhythm GI: COMMON NORMALS: Soft to palpation PALPATION: Yes Soft to palpation and No Tenderness to palpation present (GI) PERCUSSION: normal to percussion Extremity: GENERAL: Yes normal exam except as noted and No edema Neuro: COMMON NORMALS: patient oriented x3, moves all extremities, no focal motor deficits and no sensory deficits noted SENSORIUM/ORIENTATION: Yes alert and No Orientation impaired Psych: COMMON NORMALS: mental status grossly normal and Normal thought process present THOUGHT PROCESS: Normal thought process present Course ED course: - Patient was seen and evaluated by me at bedside - Patient placed on cardiac monitors, IV access obtained - Initial evaluation notable for no focal neuro deficits, hypertension noted. - Labs notable for no leukocytosis. No evidence of endorgan dysfunction, elevated troponin likely expected in the context of ablation and downtrending. TSH is low with mildly elevated free T4 though patient symptom otology is not consistent with thyroid storm. - Imaging notable for negative head CT. Negative chest x-ray. Patient reporting left flank pain and further evaluation required for CT to rule out postoperative complication which was negative for retroperitoneal hematoma. - Given the patient's recent procedure I attempted to contact the performing facility for further recommendations regarding medication management. - Patient care handed off to overnight ED physician pending completion of evaluation and recommendations. Note: Click bubbles or prepopulated tarango in note writing are used for assistance with data collection and billing and are inherently more limited than narrative and other text portions of this note. Please use narrative for additional clinical history and defer to narrative/free test for any case of contradictory information. If information appears in only free text or click bubble it should be considered present or absent as reported. Please contact note contract technical writer for clarifications of clinical information or contradictory information. MDM is a brief summary, contradictory or erroneous seeming information should be clarified and full note should be reviewed. Vital Signs: Vital signs: Vital Signs Temperature 98.2 F 09/08/21 20:01 Pulse Rate 70 09/08/21 20:01 Respiratory Rate 18 09/08/21 20:01 Blood Pressure 157/76 09/09/21 00:08 Pulse Oximetry 98 09/08/21 20:01 MDM - Headache Medical Decision Making 66-year-old gentleman with history of atrial fibrillation presenting approximately 6 days after ablation with high blood pressure correlating with chest discomfort and headache. Patient presents here with high blood pressure I spoke to his PCP Dr. Toscano we will increase his lisinopril to 40 mg a day and he is to follow-up with him tomorrow patient's work-up here is all normal. He is return if worsening. Medical Records I reviewed the patient's medical records. Lab Data I reviewed the patient's lab results. : 09/08/21 21:07 09/08/21 21:07 Radiology Impressions Chest X-Ray 09/08/21 21:00 IMPRESSION: No acute findings. Head CT 09/08/21 21:00 IMPRESSION: Negative for acute intracranial abnormality. Unremarkable head CT. Abdomen/Pelvis CT 09/08/21 21:32 IMPRESSION: 1. Negative for retroperitoneal hematoma. 2. Negative for acute abdominopelvic pathology. COMMENTS: Consistent with the [employer]'s Incidental Findings Committee white paper (J Am Yaneth Radiol 2018): Any incidental renal lesion less than 1 cm or classified as too small to characterize, or any incidental cystic renal lesion characterized as simple-appearing, is likely benign. No follow-up imaging is recommended for these lesions per consensus recommendations based on imaging criteria. Laboratory Results WBC 8.7 10^3/uL (4.0-10.0) 09/08/21 21:07 RBC 4.19 10^6/uL (4.1-5.3) 09/08/21 21:07 Hgb 12.5 g/dL (11.7-16.6) 09/08/21 21:07 Hct 37.6 % (42.0-52.0) L 09/08/21 21:07 MCV 89.7 fl (80-94) 09/08/21 21:07 MCH 29.8 pg (28.0-34.0) 09/08/21 21: MCHC 33.2 g/dL (30.0-36.0) 09/08/21 21:07 RDW 13.5 % (12.1-15.1) 09/08/21 21:07 Plt Count 200 10^3/cmm (130-400) 09/08/21 21:07 MPV 11.3 fL (7.4-10.4) H 09/08/21 21:07 Neut % (Auto) 66.0 % 09/08/21 21:07 Lymph % (Auto) 22.8 % 09/08/21 21:07 Dickson % (Auto) 8.5 % 09/08/21 21:07 Eos % (Auto) 1.9 % 09/08/21 21:07 Baso % (Auto) 0.6 % 09/08/21 21:07 Neut # (Auto) 5.75 10^3/uL (1.8-7.7) 09/08/21 21:07 Lymph # (Auto) 2.0 10^3/uL (0.8-4.8) 09/08/21 21:07 Dickson # (Auto) 0.7 10^3/uL (0.2-0.9) 09/08/21 21:07 Eos # (Auto) 0.2 10^3/uL (0.0-0.8) 09/08/21 21:07 Baso # (Auto) 0.1 10^3/uL (0.0-0.1) 09/08/21 21:07 Nucleated RBC % (auto) 0 % 09/08/21 21:07 Nucleated RBCs # 0.0 /100WBC 09/08/21 21:07 Sodium 140 mmol/L (136-145) 09/08/21 21:07 Potassium 4.1 mmol/L (3.5-5.1) 09/08/21 21:07 Chloride 107 mmol/L (98-107) 09/08/21 21:07 Carbon Dioxide 25 mmol/L (22-29) 09/08/21 21:07 Anion Gap 12.1 (5-19) 09/08/21 21:07 BUN 16 mg/dL (8-23) 09/08/21 21:07 Creatinine 0.8 mg/dL (0.7-1.2) 09/08/21 21:07 GFR Calculation 97.0 mL/min (90-130) 09/08/21 21:07 Glucose 105 mg/dL (65-115) 09/08/21 21:07 Calculated Osmolality 292 mOsm/kg (285-295) 09/08/21 21:07 Calcium 9.2 mg/dL (8.5-10.5) 09/08/21 21:07 Magnesium 2.3 mg/dL (1.7-2.3) 09/08/21 21:07 Total Bilirubin 0.2 mg/dL (0.15-1.2) 09/08/21 21:07 AST 12 U/L (0-40) 09/08/21 21:07 ALT 11 U/L (0-41) 09/08/21 21:07 Alkaline Phosphatase 129 IU/L (40-130) 09/08/21 21:07 Troponin T Baseline 113 ng/L (0-15) H* 09/08/21 21:07 Troponin T 120 Minute 106.0 ng/L (0-15) H 09/08/21 22:46 Delta Troponin T -7.0 ABS# (0-10) L 09/08/21 22:46 NT-Pro-B Natriuret Pep 131 pg/mL (0-125) H 09/08/21 21:07 Total Protein 6.0 g/dL (6.6-8.7) L 09/08/21 21:07 Albumin 4.1 g/dL (3.5-5.2) 09/08/21 21:07 Globulin 1.9 g/dL (1.3-4.6) 09/08/21 21:07 TSH 0.08 uIU/mL (0.27-4.20) L 09/08/21 21:07 Free T4 1.91 ng/dL (0.82-1.77) H 09/08/21 21:07 EKG Data EKG 1: I personally reviewed and interpreted this EKG as follows: EKG interpretation date: 09/08/21 EKG interpretation time: 20:18 Interpretation: Twelve-lead EKG shows a regular rhythm at a rate of 66. WV interval 154, QRS duration 97, QTc 447. Normal axis. Interpretation: Sinus rhythm. EKG 2: I personally reviewed and interpreted this EKG as follows: EKG interpretation date: 09/08/21 EKG interpretation time: 23:07 Interpretation: Twelve-lead EKG shows a regular rhythm at a rate of 64. WV interval 168, QRS duration 100, QTc 445. Normal axis. Interpretation: Sinus rhythm. Discharge Plan Discharge Patient Disposition: Home Clinical Impression: Hypertension, Headache, H/O cardiac radiofrequency ablation, Chest discomfort, Flank pain Condition: Stable Prescriptions: Discontinued lisinopril 20 mg tablet 20 mg PO DAILY 0RF Rx Instructions: SEE PHARMACY COMMENT No Action tadalafil [Cialis] 10 mg tablet 10 mg PO DAILY PRN (Reason: sexual activity) Qty: 30 3RF Rx Instructions: administer approximately 30min before sexual activity; do not use more than 1 dose per 24hrs lisinopril 40 mg tablet 40 mg PO DAILY Qty: 90 3RF spironolacton-hydrochlorothiaz [Aldactazide] 25-25 mg tablet 1 tab PO DAILY Qty: 90 3RF itraconazole 100 mg capsule 200 mg PO DAILY Qty: 90 0RF amiodarone [Pacerone] 200 mg tablet 200 mg PO DAILY 0RF aspirin 81 mg Tablet,Delayed Release (Dr/Ec) 81 mg PO DAILY 0RF diltiazem HCl 120 mg capsule,extended release 24hr 120 mg PO DAILY 0RF Eliquis 5 mg tablet 5 mg PO DAILY 0RF Rx Instructions: SEE PHARMACY COMMENT oxycodone 5 mg tablet 5 mg PO Q4H PRN (Reason: pain) Qty: 8 0RF pantoprazole 40 mg tablet,delayed release (DR/EC) 40 mg PO DAILY Qty: 90 8RF Linzess 72 mcg capsule 72 mcg PO DAILY Qty: 30 6RF Discharge Orders: Discharge ED (Routine); Ordered 09/08/21 Ordered By: Azul Hampton Referrals: Jason Toscano MD [Primary Care Provider] - 1-3 days Discharge Diet: As Directed Discharge Activity: Limit activity as instructed Patient Instructions: Chest Pain (ED), Acute Headache (ED), Abdominal Pain (ED), Hypertension (ED) Coding Level of Care Code ED Online Marketing Manager for [facility] Fwd Exam Comprehensive Documented by User: Azul Hampton MD 09/08/21 23:50 HPI - Headache General: Chief Complaint: Headache Stated Complaint: HYPERTENSION Time Seen by Provider: 09/08/21 20:44 PFS ED PFSH: Medical History Atrial fibrillation Surgical History History of cardiac radiofrequency ablation Social History Smoking and tobacco status: former smoker Alcohol intake: never Adopted: No Marital status: / Number of children: 4 service: Yes History of recent travel: No Course Vital Signs: Vital signs: Vital Signs Temperature 98.2 F 09/08/21 20:01 Pulse Rate 70 09/08/21 20:01 Respiratory Rate 18 09/08/21 20:01 Blood Pressure 157/76 09/09/21 00:08 Pulse Oximetry 98 09/08/21 20:01 MDM - Headache Medical Decision Making Patient presents here with high blood pressure I spoke to his PCP Dr. Toscano we will increase his lisinopril to 40 mg a day and he is to follow-up with him tomorrow patient's work-up here is all normal. He is return if worsening. Lab Data : 09/08/21 21:07 09/08/21 21:07 Radiology Impressions Chest X-Ray 09/08/21 21:00 IMPRESSION: No acute findings. Head CT 09/08/21 21:00 IMPRESSION: Negative for acute intracranial abnormality. Unremarkable head CT. Abdomen/Pelvis CT 09/08/21 21:32 IMPRESSION: 1. Negative for retroperitoneal hematoma. 2. Negative for acute abdominopelvic pathology. COMMENTS: Consistent with the [employer]'s Incidental Findings Committee white paper (J Am Yaneth Radiol 2018): Any incidental renal lesion less than 1 cm or classified as too small to characterize, or any incidental cystic renal lesion characterized as simple-appearing, is likely benign. No follow-up imaging is recommended for these lesions per consensus recommendations based on imaging criteria. Laboratory Results WBC 8.7 10^3/uL (4.0-10.0) 09/08/21 21:07 RBC 4.19 10^6/uL (4.1-5.3) 09/08/21 21:07 Hgb 12.5 g/dL (11.7-16.6) 09/08/21 21:07 Hct 37.6 % (42.0-52.0) L 09/08/21 21:07 MCV 89.7 fl (80-94) 09/08/21 21:07 MCH 29.8 pg (28.0-34.0) 09/08/21 21:07 MCHC 33.2 g/dL (30.0-36.0) 09/08/21 21:07 RDW 13.5 % (12.1-15.1) 09/08/21 21:07 Plt Count 200 10^3/cmm (130-400) 09/08/21 21:07 MPV 11.3 fL (7.4-10.4) H 09/08/21 21:07 Neut % (Auto) 66.0 % 09/08/21 21: Lymph % (Auto) 22.8 % 09/08/21 21:07 Dickson % (Auto) 8.5 % 09/08/21 21:07 Eos % (Auto) 1.9 % 09/08/21 21:07 Baso % (Auto) 0.6 % 09/08/21 21:07 Neut # (Auto) 5.75 10^3/uL (1.8-7.7) 09/08/21 21: Lymph # (Auto) 2.0 10^3/uL (0.8-4.8) 09/08/21 21:07 Dickson # (Auto) 0.7 10^3/uL (0.2-0.9) 09/08/21 21:07 Eos # (Auto) 0.2 10^3/uL (0.0-0.8) 09/08/21 21:07 Baso # (Auto) 0.1 10^3/uL (0.0-0.1) 09/08/21 21: Nucleated RBC % (auto) 0 % 09/08/21 21: Nucleated RBCs # 0.0 /100WBC 09/08/21 21: Sodium 140 mmol/L (136-145) 09/08/21 21:07 Potassium 4.1 mmol/L (3.5-5.1) 09/08/21 21:07 Chloride 107 mmol/L (98-107) 09/08/21 21:07 Carbon Dioxide 25 mmol/L (22-29) 09/08/21 21:07 Anion Gap 12.1 (5-19) 09/08/21 21:07 BUN 16 mg/dL (8-23) 09/08/21 21:07 Creatinine 0.8 mg/dL (0.7-1.2) 09/08/21 21:07 GFR Calculation 97.0 mL/min (90-130) 09/08/21 21:07 Glucose 105 mg/dL (65-115) 09/08/21 21:07 Calculated Osmolality 292 mOsm/kg (285-295) 09/08/21 21:07 Calcium 9.2 mg/dL (8.5-10.5) 09/08/21 21:07 Magnesium 2.3 mg/dL (1.7-2.3) 09/08/21 21:07 Total Bilirubin 0.2 mg/dL (0.15-1.2) 09/08/21 21:07 AST 12 U/L (0-40) 09/08/21 21:07 ALT 11 U/L (0-41) 09/08/21 21:07 Alkaline Phosphatase 129 IU/L (40-130) 09/08/21 21:07 Troponin T Baseline 113 ng/L (0-15) H* 09/08/21 21:07 Troponin T 120 Minute 106.0 ng/L (0-15) H 09/08/21 22:46 Delta Troponin T -7.0 ABS# (0-10) L 09/08/21 22:46 NT-Pro-B Natriuret Pep 131 pg/mL (0-125) H 09/08/21 21:07 Total Protein 6.0 g/dL (6.6-8.7) L 09/08/21 21:07 Albumin 4.1 g/dL (3.5-5.2) 09/08/21 21:07 Globulin 1.9 g/dL (1.3-4.6) 09/08/21 21:07 TSH 0.08 uIU/mL (0.27-4.20) L 09/08/21 21:07 Free T4 1.91 ng/dL (0.82-1.77) H 09/08/21 21:07 Discharge Plan Discharge Patient Disposition: Home Clinical Impression: Hypertension, Headache, H/O cardiac radiofrequency ablation, Chest discomfort, Flank pain Condition: Stable Prescriptions: Discontinued lisinopril 20 mg tablet 20 mg PO DAILY 0RF Rx Instructions: SEE PHARMACY COMMENT No Action tadalafil [Cialis] 10 mg tablet 10 mg PO DAILY PRN (Reason: sexual activity) Qty: 30 3RF Rx Instructions: administer approximately 30min before sexual activity; do not use more than 1 dose per 24hrs lisinopril 40 mg tablet 40 mg PO DAILY Qty: 90 3RF spironolacton-hydrochlorothiaz [Aldactazide] 25-25 mg tablet 1 tab PO DAILY Qty: 90 3RF itraconazole 100 mg capsule 200 mg PO DAILY Qty: 90 0RF amiodarone [Pacerone] 200 mg tablet 200 mg PO DAILY 0RF aspirin 81 mg Tablet,Delayed Release (Dr/Ec) 81 mg PO DAILY 0RF diltiazem HCl 120 mg capsule,extended release 24hr 120 mg PO DAILY 0RF Eliquis 5 mg tablet 5 mg PO DAILY 0RF Rx Instructions: SEE PHARMACY COMMENT oxycodone 5 mg tablet 5 mg PO Q4H PRN (Reason: pain) Qty: 8 0RF pantoprazole 40 mg tablet,delayed release (DR/EC) 40 mg PO DAILY Qty: 90 8RF Linzess 72 mcg capsule 72 mcg PO DAILY Qty: 30 6RF Discharge Orders: Discharge ED (Routine); Ordered 09/08/21 Ordered By: Azul Hampton Referrals: Jason Toscano MD [Primary Care Provider] - 1-3 days Discharge Diet: As Directed Discharge Activity: Limit activity as instructed Patient Instructions: Chest Pain (ED), Acute Headache (ED), Abdominal Pain (ED), Hypertension (ED) Coding Level of Care Code ED Online Marketing Manager for [facility] Exam Comprehensive
--- NOTE | 2021-09-08 21:00 | CTR_ITS ---
PROCEDURE INFORMATION: Exam: CT Head Without Contrast Exam date and time: 09/08/2021 9:00 PM Age: 66 years old Clinical indication: Pain; Headache; Additional info: Headache, lightheaded TECHNIQUE: Imaging protocol: Computed tomography of the head without contrast. Radiation optimization: All CT scans at this facility use at least one of these dose optimization techniques: automated exposure control; mA and/or kV adjustment per patient size (includes targeted exams where dose is matched to clinical indication); or iterative reconstruction. COMPARISON: No relevant prior studies available. RADIATION DOSE METRICS: Total DLP (mGy-cm): 893.82 FINDINGS: Brain: Normal. No hemorrhage. Unremarkable white matter. No mass effect. Cerebral ventricles: No ventriculomegaly. Paranasal sinuses: Right maxillary sinus fluid. Mastoid air cells: Visualized mastoid air cells are well aerated. Bones/joints: Unremarkable. No acute fracture. Soft tissues: Unremarkable. CT/CT head wo con* [id number] IMPRESSION: Negative for acute intracranial abnormality. Unremarkable head CT.
--- NOTE | 2021-09-08 21:00 | XRR_ITS ---
PROCEDURE INFORMATION: Exam: XR Chest Exam date and time: 09/08/2021 9:00 PM Age: 66 years old Clinical indication: Chest wall pain; Additional info: Chest pain TECHNIQUE: Imaging protocol: XR of the chest. Views: 1 view. COMPARISON: CT kidney stone [id number] 06/11/2021 3:36 PM FINDINGS: Lungs: Unremarkable. No consolidation. Pleural spaces: Unremarkable. No pleural effusion. No pneumothorax. Heart/Mediastinum: Unremarkable. No cardiomegaly. Bones/joints: Unremarkable. XR/XR chest 1V portable [id number] IMPRESSION: No acute findings.
--- NOTE | 2021-09-08 21:01 | ECG_ITS ---
[facility] Test Date: 2021-09-08 Pat Name: Luke Andrade Department: Room: Gender: Male Inspector And Sorter: : 1955 Requested By: Oren Summers Order Number: [id number] Colin MD: Osman Valerio M.D. Measurements Intervals [place] Rate: 66 P: 48 RI: 154 QRS: 69 QRSD: 97 T: 85 QT: 433 QTc: 457 Interpretive Statements SINUS RHYTHM No previous ECG available for comparison Electronically Signed On 09-08-2021 22:16:04 HOT DIMPLING MACHINE OPERATOR by Osman Valerio M.D. [id number] f
[2021-09-08 21:10] LABS: Basophils # 0.1 10^3/uL (0.0-0.1); Basophils % 0.6 %; Eosinophils # 0.2 10^3/uL (0.0-0.8); Eosinophils % 1.9 %; Hematocrit 37.6 % (42.0-52.0); Hemoglobin 12.5 g/dL (11.7-16.6); Lymphocytes % 22.8 %; Mean Corpuscular HGB Conc 33.2 g/dL (30.0-36.0); Mean Corpuscular Hemoglobin 29.8 pg (28.0-34.0); Mean Corpuscular Volume 89.7 fl (80-94); Mean Platelet Volume 11.3 fL (7.4-10.4); Monocytes # 0.7 10^3/uL (0.2-0.9); Monocytes % 8.5 %; Neutrophils # 5.75 10^3/uL (1.8-7.7); Nucleated Red Blood Cells % 0 %; Platelet Count 200 10^3/cmm (130-400); Red Blood Count 4.19 10^6/uL (4.1-5.3); Red Cell Distribution Width 13.5 % (12.1-15.1); White Blood Count 8.7 10^3/uL (4.0-10.0)
--- NOTE | 2021-09-08 21:32 | CTR_ITS ---
PROCEDURE INFORMATION: Exam: CT Abdomen And Pelvis With Contrast Exam date and time: 09/08/2021 9:32 PM Age: 66 years old Clinical indication: Abdominal pain; Flank; Left; Additional info: L back and flank pain, ? retroperitoneal hematoma S/P cath TECHNIQUE: Imaging protocol: Computed tomography of the abdomen and pelvis with contrast. Radiation optimization: All CT scans at this facility use at least one of these dose optimization techniques: automated exposure control; mA and/or kV adjustment per patient size (includes targeted exams where dose is matched to clinical indication); or iterative reconstruction. Contrast material: OMNI 300; Contrast volume: 95 ml; Contrast route: INTRAVENOUS (IV); COMPARISON: CT abdomen pelvis w con* [id number] 03/03/2021 5:26 PM RADIATION DOSE METRICS: Total DLP (mGy-cm): 1416.83 FINDINGS: Liver: Normal. No mass. Gallbladder and bile ducts: Normal. No calcified stones. No ductal dilation. Pancreas: Normal. No ductal dilation. Spleen: Normal. No splenomegaly. Adrenal glands: Normal. No mass. Kidneys and ureters: Small simple left renal cortical cyst. No hydronephrosis. No renal stones. No perinephric inflammatory change. Stomach and bowel: Mild diverticulosis coli. No inflammatory bowel wall thickening. Negative for bowel obstruction. Negative for bowel perforation. Appendix: No evidence of appendicitis. Intraperitoneal space: Negative for retroperitoneal hematoma. Vasculature: Scattered atherosclerosis of abdominal aorta. No aneurysm. No dissection. No vascular occlusion. No active bleeding. Lymph nodes: Unremarkable. No enlarged lymph nodes. Urinary bladder: Unremarkable as visualized. Reproductive: Unremarkable as visualized. Bones/joints: Unremarkable. No acute fracture. Soft tissues: Unremarkable. CT/CT abdomen pelvis w con* [id number] IMPRESSION: 1. Negative for retroperitoneal hematoma. 2. Negative for acute abdominopelvic pathology. COMMENTS: Consistent with the [employer]'s Incidental Findings Committee white paper (J Am Yaneth Radiol 2018): Any incidental renal lesion less than 1 cm or classified as too small to characterize, or any incidental cystic renal lesion characterized as simple-appearing, is likely benign. No follow-up imaging is recommended for these lesions per consensus recommendations based on imaging criteria.
[2021-09-08 21:33] LABS: Alanine Aminotransferase 11 U/L (0-41); Albumin Level 4.1 g/dL (3.5-5.2); Alkaline Phosphatase 129 IU/L (40-130); Anion Gap 12.1 (5-19); Aspartate Amino Transferase 12 U/L (0-40); Blood Urea Nitrogen 16 mg/dL (8-23); Calcium 9.2 mg/dL (8.5-10.5); Carbon Dioxide 25 mmol/L (22-29); Chloride 107 mmol/L (98-107); Globulin 1.9 g/dL (1.3-4.6); Glucose 105 mg/dL (65-115); Magnesium 2.3 mg/dL (1.7-2.3); Osmolality Calculated 292 mOsm/kg (285-295); Potassium 4.1 mmol/L (3.5-5.1); Sodium 140 mmol/L (136-145); Total Bilirubin 0.2 mg/dL (0.15-1.2)
[2021-09-08 21:43] LABS: Troponin(5th) Baseline 113 ng/L (0-15)
[2021-09-08 21:44] LABS: NT Pro B Type Natriuretic Pept 131 pg/mL (0-125); Thyroid Stimulating Hormone 0.08 uIU/mL (0.27-4.20)
[2021-09-08 22:11] LABS: Free T4 Free Thyroxine 1.91 ng/dL (0.82-1.77)
[2021-09-08] MEDS: iohexol 300 mg/mL 100 mL Btl IV (22:12)
[2021-09-08 22:32] VITALS: BP 181/84
[2021-09-08] MEDS: diphenhydrAMINE 50 mg/mL SDV 1mL 25 MG IVP (22:55)
[2021-09-08] MEDS: metoclopramide 5 mg/mL SDV 2 mL 10 MG IVP (22:56)
[2021-09-08] MEDS: acetaminophen 500 mg Tablet 1000 MG PO (22:58)
--- NOTE | 2021-09-08 23:01 | ECG_ITS ---
[facility] Test Date: 2021-09-08 Pat Name: Luke Andrade Department: Room: Gender: Male Leadership Development Manager: : 1955 Requested By: Oren Summers Order Number: [id number] Colin MD: Natasha Mendes M.D. Measurements Intervals [place] Rate: 64 P: 48 MN: 168 QRS: 66 QRSD: 100 T: 70 QT: 435 QTc: 451 Interpretive Statements SINUS RHYTHM Compared to ECG 09/08/2021 20:15:29 No significant changes Electronically Signed On 09-09-2021 17:46:19 BEHAVIOR MANAGEMENT SPECIALIST by Natasha Mendes M.D. [id number]
[2021-09-09] MEDS: hyDRALAzine 20 mg/mL INJ 1 mL 10 MG IVP (00:07)
[2021-09-09 00:08] VITALS: BP 157/76
== END 2021-09-09 00:12 | disposition home or self-care (01) ==
PROVIDERS: Emergency Medicine; Emergency Provider Emergency Medicine; PCP Internal Medicine
DX: R51.9 Headache, unspecified (principal); I10 Essential (primary) hypertension; R07.89 Other chest pain; R10.9 Unspecified abdominal pain; Z79.82 Long term (current) use of aspirin; Z79.01 Long term (current) use of anticoagulants; Z87.891 Personal history of nicotine dependence
CPT/HCPCS: 70450; 71045; 74177; 80053; 83735; 83880; 84439; 84443; 84484; 85025; 93005; 96374; 96375; 99284; J0360; J1200; J2765; Q9967

== ENCOUNTER 2021-09-09 19:42 | Emergency (ER) | payer MEDICARE, MEDICAID, SELFPAY ==
--- NOTE | 2021-09-09 19:51 | XRR_ITS ---
PROCEDURE INFORMATION: Exam: XR Chest Exam date and time: 09/09/2021 7:51 PM Age: 66 years old Clinical indication: Sternal or substernal pain; Additional info: Cp TECHNIQUE: Imaging protocol: XR of the chest. Views: 1 view. COMPARISON: CR (CHEST, ) 09/08/2021 9:07 PM FINDINGS: Lungs: Unremarkable. No consolidation. Pleural spaces: Unremarkable. No pleural effusion. No pneumothorax. Heart/Mediastinum: Unremarkable. No cardiomegaly. Bones/joints: Leftward thoracic curvature. Old bilateral rib fractures. No acute fracture visualized. XR/XR chest 1V portable [id number] IMPRESSION: No acute findings.
--- NOTE | 2021-09-09 19:52 | ECG_ITS ---
[facility] Test Date: 2021-09-09 Pat Name: Luke Andrade Department: Room: Gender: Male Data Coder Operator: : 1955 Requested By: Azul Hampton Order Number: [id number] Colin MD: Natasha Mendes M.D. Measurements Intervals [place] Rate: 129 P: DC: QRS: 64 QRSD: 97 T: 80 QT: 322 QTc: 472 Interpretive Statements ATRIAL FIBRILLATION WITH RAPID VENTRICULAR RESPONSE NONSPECIFIC ST & T-WAVE ABNORMALITY Compared to ECG 09/08/2021 23:00:09 T-wave abnormality now present Sinus rhythm no longer present Electronically Signed On 09-10-2021 7:18:48 CHEMICAL TANK WORKER by Natasha Mendes M.D. [id number]
--- NOTE | 2021-09-09 19:59 | W.ED.ARRPALP ---
HPI - Arrhythmia/Palpitations General: Chief Complaint: Chest Pain Stated Complaint: CP WITH A FIB Time Seen by Provider: 09/09/21 19:58 History of Present Illness: Mr. Andrade is a 66-year-old gentleman seen yesterday in the emergency department now 1 week post ablation with concern for returning back to A. fib with RVR. He was discharged last night with modification to his antihypertensive regimen and followed up with PCP today. PCP added spironolactone?hydrochlorothiazide. He was not in atrial fibrillation at that time. He endorses an abnormal feeling in his chest at about 6:30 PM which started while at rest. He checked his pulse and noticed that it was rapid and variable in the mid 100s range. Associated with this he had chest pressure as well as lightheadedness. This has persisted since onset. Intensity of symptoms is moderate to severe. Denies other infectious symptoms, changes in health, exacerbating relieving factors. He has otherwise been compliant with his medication regimen. He is no longer on Eliquis. Onset (ago): hour(s) Time: 18:30 Duration: constant Severity: severe Context: occurred during rest and other Arrhythmia history: atrial fibrillation Associated symptoms: Reports other Review of Systems General: Reports: 10 or more systems reviewed and unremarkable except in HPI and below PFSH ED PFSH: Medical History Atrial fibrillation Surgical History History of cardiac radiofrequency ablation Social History Smoking and tobacco status: former smoker Alcohol intake: never Adopted: No Marital status: / Number of children: 4 service: Yes History of recent travel: No Physical Exam Const: COMMON NORMALS: alert GENERAL APPEARANCE: cooperative and well developed HENMT: COMMON NORMALS: normocephalic and atraumatic HEAD & SCALP: normocephalic and atraumatic Eye: COMMON NORMALS: conjunctivae normal CONJUNCTIVA: Yes conjunctivae normal SCLERA: sclerae normal Neck/C-Spine: COMMON NORMALS: supple GENERAL: Yes trachea midline Resp: COMMON NORMALS: normal respiratory effort EFFORT & INSPECTION: Yes able to speak in complete sentences Cardio: RATE: tachycardic RHYTHM: abnormal rhythm irregularly irregular GI: COMMON NORMALS: Soft to palpation PALPATION: Yes Soft to palpation and No Tenderness to palpation present (GI) PERCUSSION: normal to percussion Extremity: GENERAL: Yes normal exam except as noted and No edema Neuro: COMMON NORMALS: moves all extremities SENSORIUM/ORIENTATION: Yes alert and No Orientation impaired Psych: COMMON NORMALS: mental status grossly normal and Normal thought process present THOUGHT PROCESS: Normal thought process present Course ED course: - Patient was seen and evaluated by me at bedside - Patient placed on cardiac monitors, IV access obtained - Initial evaluation notable for atrial fibrillation with RVR. - Cardizem 20 mg bolus ordered. Initial rates typically in the 130s with satisfactory blood pressure. Transiently improved with bolus however began to increase again and drip was initiated and titrated per protocol. - Labs notable for minimal leukocytosis which may be secondary to hemoconcentration when compared to prior. No acute electrolyte derangements to explain symptoms. Delta troponin is negative. Covid negative. - Imaging notable for no acute findings - Upon serial reexamination after treatment the patient was similar, while on drip he did have some improvement in heart rate more consistently in the 80s to 90s range. - Based on patient history, evaluation, labs, and imaging as interpreted the most likely cause of the patient's condition is atrial fibrillation with rapid ventricular response requiring IV drip. - Given that the patient is 1 week postoperative from ablation and we do not have a cardiac telemetry unit bed available patient requires transfer back to [facility] in [place]. - Discussed with transfer center and subsequently Dr. Umaña who accepted the patient. Note: Click bubbles or prepopulated tarango in note writing are used for assistance with data collection and billing and are inherently more limited than narrative and other text portions of this note. Please use narrative for additional clinical history and defer to narrative/free test for any case of contradictory information. If information appears in only free text or click bubble it should be considered present or absent as reported. Please contact note writer editor for clarifications of clinical information or contradictory information. MDM is a brief summary, contradictory or erroneous seeming information should be clarified and full note should be reviewed. Vital Signs: Vital signs: Vital Signs Temperature 98.1 F 09/09/21 20:04 Pulse Rate 97 09/09/21 23:29 Respiratory Rate 16 09/09/21 23:29 Blood Pressure 126/78 09/09/21 23:29 Pulse Oximetry 95 09/09/21 23:29 MDM - Arrhythmia/Palpitations Medical Decision Making 66-year-old gentleman 1 week postop from cardiac ablation presenting with recurrent atrial fibrillation with RVR requiring IV drip. Will be transferred back to performing facility in [place]. Medical Records I reviewed the patient's medical records. Lab Data I reviewed the patient's lab results. : 09/09/21 20:08 09/09/21 20:08 Radiology Impressions Chest X-Ray 09/09/21 19:51 IMPRESSION: No acute findings. Laboratory Results WBC 10.4 10^3/uL (4.0-10.0) H 09/09/21 20:08 RBC 4.94 10^6/uL (4.1-5.3) 09/09/21 20:08 Hgb 15.0 g/dL (11.7-16.6) 09/09/21 20:08 Hct 43.6 % (42.0-52.0) 09/09/21 20:08 MCV 88.3 fl (80-94) 09/09/21 20:08 MCH 30.4 pg (28.0-34.0) 09/09/21 20:08 MCHC 34.4 g/dL (30.0-36.0) 09/09/21 20:08 RDW 13.4 % (12.1-15.1) 09/09/21 20:08 Plt Count 243 10^3/cmm (130-400) 09/09/21 20:08 MPV 11.3 fL (7.4-10.4) H 09/09/21 20:08 Neut % (Auto) 74.5 % 09/09/21 20:08 Lymph % (Auto) 15.1 % 09/09/21 20:08 [place] % (Auto) 8.3 % 09/09/21 20:08 Eos % (Auto) 1.0 % 09/09/21 20:08 Baso % (Auto) 0.7 % 09/09/21 20:08 Neut # (Auto) 7.73 10^3/uL (1.8-7.7) H 09/09/21 20:08 Lymph # (Auto) 1.6 10^3/uL (0.8-4.8) 09/09/21 20:08 [place] # (Auto) 0.9 10^3/uL (0.2-0.9) 09/09/21 20:08 Eos # (Auto) 0.1 10^3/uL (0.0-0.8) 09/09/21 20:08 Baso # (Auto) 0.1 10^3/uL (0.0-0.1) 09/09/21 20:08 Nucleated RBC % (auto) 0 % 09/09/21 20:08 Nucleated RBCs # 0.0 /100WBC 09/09/21 20:08 Sodium 141 mmol/L (136-145) 09/09/21 20:08 Potassium 3.7 mmol/L (3.5-5.1) 09/09/21 20:08 Chloride 105 mmol/L (98-107) 09/09/21 20:08 Carbon Dioxide 22 mmol/L (22-29) 09/09/21 20:08 Anion Gap 17.7 (5-19) 09/09/21 20:08 BUN 17 mg/dL (8-23) 09/09/21 20:08 Creatinine 0.9 mg/dL (0.7-1.2) 09/09/21 20:08 GFR Calculation 84.7 mL/min (90-130) L 09/09/21 20:08 Glucose 112 mg/dL (65-115) 09/09/21 20:08 Calculated Osmolality 294 mOsm/kg (285-295) 09/09/21 20:08 Calcium 9.9 mg/dL (8.5-10.5) 09/09/21 20:08 Magnesium 2.4 mg/dL (1.7-2.3) H 09/09/21 20:08 Total Bilirubin 0.3 mg/dL (0.15-1.2) 09/09/21 20:08 AST 14 U/L (0-40) 09/09/21 20:08 ALT 12 U/L (0-41) 09/09/21 20:08 Alkaline Phosphatase 150 IU/L (40-130) H 09/09/21 20:08 Troponin T Baseline 69 ng/L (0-15) H 09/09/21 20:08 Troponin T 120 Minute 66.31 ng/L (0-15) H 09/09/21 21:54 Delta Troponin T -2.69 ABS# (0-10) L 09/09/21 21:54 Total Protein 7.6 g/dL (6.6-8.7) D 09/09/21 20:08 Albumin 4.8 g/dL (3.5-5.2) 09/09/21 20:08 Globulin 2.8 g/dL (1.3-4.6) 09/09/21 20:08 SARS-CoV-2 Ag (Rapid) Negative (Negative) 09/09/21 21:54 EKG Data EKG 1: I personally reviewed and interpreted this EKG as follows: EKG interpretation date: 10/07/21 EKG interpretation time: 20:03 Interpretation: Twelve-lead EKG shows an irregular rhythm at a rate of 129. CA interval not present, QRS duration 97, QTc 398. Normal axis. Interpretation: Atrial fibrillation with rapid ventricular response. Other EKG comments: Chest X-Ray 09/09/21 19:51 IMPRESSION: No acute findings. Critical Care Time Critical Care Time: Critical Care Time: Yes Total Critical Care Time: 40 Attestation: Due to a high probability of clinically significant, possibly life threatening deterioration, the patient required my highest level of attention and preparedness to intervene emergently and I personally spent this critical care time directly and personally managing the patient. This critical care time included obtaining a history; examining the patient; pulse oximetry; ordering and review of laboratory and imaging studies; arranging urgent treatment with development of a management plan; evaluation of patient's response to treatment; frequent reassessment; and, discussions with other providers as applicable. It was exclusive of separately billable procedures. Primary system involved is cardiovascular Discharge Plan Discharge Patient Disposition: Xfer Short-Term Hosp Clinical Impression: H/O cardiac radiofrequency ablation, Atrial fibrillation with rapid ventricular response Condition: Stable Referrals: Jason Toscano MD [Primary Care Provider] - Coding Level of Care Code ED Dynamics Ax Technical Architect for Chg Fwd Exam Comprehensive
[2021-09-09 20:00] VITALS: BP 164/137; PULSE 129; RESP 18; TEMP 36.7; O2SAT 100; BMI 23.6
[2021-09-09 20:04] VITALS: BP 164/137; PULSE 129; RESP 18; TEMP 36.7; O2SAT 100; BMI 23.6
[2021-09-09 20:17] LABS: Basophils # 0.1 10^3/uL (0.0-0.1); Basophils % 0.7 %; Eosinophils # 0.1 10^3/uL (0.0-0.8); Hematocrit 43.6 % (42.0-52.0); Lymphocytes # 1.6 10^3/uL (0.8-4.8); Lymphocytes % 15.1 %; Mean Corpuscular HGB Conc 34.4 g/dL (30.0-36.0); Mean Corpuscular Hemoglobin 30.4 pg (28.0-34.0); Mean Corpuscular Volume 88.3 fl (80-94); Mean Platelet Volume 11.3 fL (7.4-10.4); Monocytes # 0.9 10^3/uL (0.2-0.9); Monocytes % 8.3 %; Neutrophils # 7.73 10^3/uL (1.8-7.7); Neutrophils % 74.5 %; Nucleated Red Blood Cells % 0 %; Platelet Count 243 10^3/cmm (130-400); Red Blood Count 4.94 10^6/uL (4.1-5.3); Red Cell Distribution Width 13.4 % (12.1-15.1); White Blood Count 10.4 10^3/uL (4.0-10.0)
[2021-09-09 20:29] VITALS: BP 164/106; PULSE 99; RESP 16; O2SAT 95
[2021-09-09 20:34] LABS: Troponin(5th) Baseline 69 ng/L (0-15)
[2021-09-09 20:36] LABS: Alanine Aminotransferase 12 U/L (0-41); Albumin Level 4.8 g/dL (3.5-5.2); Alkaline Phosphatase 150 IU/L (40-130); Anion Gap 17.7 (5-19); Aspartate Amino Transferase 14 U/L (0-40); Blood Urea Nitrogen 17 mg/dL (8-23); Calcium 9.9 mg/dL (8.5-10.5); Carbon Dioxide 22 mmol/L (22-29); Chloride 105 mmol/L (98-107); Globulin 2.8 g/dL (1.3-4.6); Glomerular Filtration Rate 84.7 mL/min (90-130); Glucose 112 mg/dL (65-115); Magnesium 2.4 mg/dL (1.7-2.3); Osmolality Calculated 294 mOsm/kg (285-295); Potassium 3.7 mmol/L (3.5-5.1); Sodium 141 mmol/L (136-145); Total Bilirubin 0.3 mg/dL (0.15-1.2); Total Protein 7.6 g/dL (6.6-8.7)
[2021-09-09 20:46] LABS: Slide Review Slide Review Perform
[2021-09-09] MEDS: diphenhydrAMINE 50 mg/mL SDV 1mL 25 MG IVP (21:35)
[2021-09-09] MEDS: metoclopramide 5 mg/mL SDV 2 mL 10 MG IVP (21:35)
[2021-09-09 21:39] VITALS: BP 147/93; PULSE 96; RESP 16; O2SAT 96
--- NOTE | 2021-09-09 21:52 | ECG_ITS ---
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 Measurements Intervals [place] Rate: 113 P: MT: QRS: 61 QRSD: 106 T: 78 QT: 363 QTc: 499 Interpretive Statements ATRIAL FIBRILLATION WITH RAPID VENTRICULAR RESPONSE NONSPECIFIC ST & T-WAVE ABNORMALITY Compared to ECG 09/09/2021 19:57:27 No significant changes Electronically Signed On 09-10-2021 7:20:08 LYE PEEL OPERATOR by Natasha Mendes M.D. [id number] f
[2021-09-09 22:16] VITALS: BP 131/80; PULSE 89; RESP 16; O2SAT 94
[2021-09-09 22:20] LABS: SARS Covid-2 Antigen Negative (Negative); Troponin 5 2HR 66.31 ng/L (0-15); Troponin 5 2HR Delta -2.69 ABS# (0-10)
--- NOTE | 2021-09-09 22:22 | PC.NURSE ---
PT INFORMED OF TRANSFER TO [facility], PT REFUSING TO GO THERE. DR JUAREZ AT BEDSIDE
--- NOTE | 2021-09-09 22:41 | PC.NURSE ---
PT AGREES TO GO TO [facility] AT THIS TIME. REPORT CALLED TO PATSY CAZARES AT [facility]
[2021-09-09 23:29] VITALS: BP 126/78; PULSE 97; RESP 16; O2SAT 95
== END 2021-09-09 23:39 | disposition short-term general hospital (02) ==
PROVIDERS: Emergency Medicine; Emergency Provider Emergency Medicine; PCP Internal Medicine
DX: I48.20 Chronic atrial fibrillation, unspecified (principal); Z87.891 Personal history of nicotine dependence; Z20.822 Contact with and (suspected) exposure to COVID-19
CPT/HCPCS: 36415; 71045; 80053; 83735; 84484; 85025; 87426; 93005; 96365; 96375; 99284; J1200; J2765; J3490

== ENCOUNTER 2022-03-13 11:34 | Emergency (ER) | payer MEDICARE, MEDICAID, SELFPAY ==
[2022-03-13 11:35] VITALS: BP 100/60; PULSE 60; RESP 18; TEMP 36.3; O2SAT 93; BMI 23.6
--- NOTE | 2022-03-13 11:39 | ED_ITS ---
HPI - Weakness General: Chief complaint: Weakness Stated complaint: GENERALIZED WEAKNESS Time Seen by Provider: 03/13/22 11:38 History of Present Illness: Mr. Andrade is a 66-year-old gentleman with significant past medical history of cardiac ablation who presents to the ER of general medical concern. He reports a few day onset of generalized weakness associated with generalized malaise, 1 episode of vomiting, 1 episode of watery diarrhea, and cough. Additionally he notes more fatigue. Overall course of symptoms has worsened. There is some worsening and aching in the bilateral lower extremities with worse weakness in the right upper extremity. Intensity is moderate. No other specific changes in health, exacerbating, or alleviating factors identified. Onset (ago): day(s) Duration: progressively worsening Location: generalized and RUE Severity: moderate Review of Systems General: Reports: 10 or more systems reviewed and unremarkable except in HPI and below PFSH ED PFSH: Medical History Atrial fibrillation Surgical History History of cardiac radiofrequency ablation Social History Smoking and tobacco status: former smoker Alcohol intake: never Adopted: No Marital status: / Number of children: 4 service: Yes History of recent travel: No Physical Exam Const: COMMON NORMALS: patient oriented x3 and alert GENERAL APPEARANCE: cooperative and well developed HENMT: COMMON NORMALS: normocephalic and atraumatic HEAD & SCALP: normocephalic and atraumatic Eye: COMMON NORMALS: conjunctivae normal CONJUNCTIVA: Yes conjunctivae normal SCLERA: sclerae normal Neck/C-Spine: COMMON NORMALS: supple GENERAL: Yes trachea midline Resp: COMMON NORMALS: normal respiratory effort EFFORT & INSPECTION: Yes a ble to speak in complete sentences AUSCULTATION: diminished lung sounds Cardio: COMMON NORMALS: regular rate and regular rhythm RATE: regular rate RHYTHM: regular rhythm GI: COMMON NORMALS: Soft to palpation PALPATION: Yes Soft to palpation and No Tenderness to palpation present (GI) Extremity: GENERAL: Yes normal exam except as noted and No edema Neuro: COMMON NORMALS: patient oriented x3 and moves all extremities SENSORIUM/ORIENTATION: Yes alert and No Orientation impaired Psych: COMMON NORMALS: mental status grossly normal and Normal thought process present THOUGHT PROCESS: Normal thought process present Course ED course: - Patient was seen and evaluated by me at bedside - Patient placed on cardiac monitors, IV access obtained - Initial evaluation notable for exam as above. No focal findings - Labs and xrays personally interpreted by me. EKG shows sinus rhythm with occasional PACs, no STEMI. -Fluids given - Labs notable for no leukocytosis, normal hemoglobin. Metabolic panel notable for MICAH and transaminitis. No UTI. - Imaging notable for no lobar consolidation or pneumothorax. CT head without acute intracranial abnormality. CT neck notable for suspicious lesion concerning for liposarcoma. I discussed this with the patient including critical need for follow-up. I will message case management for order for outpatient MRI and ultrasound-guided biopsy. No clear pathology on right upper quadrant ultrasound to explain transaminitis - Upon serial reexamination after treatment the patient was improved - Based on patient history, evaluation, and testing as interpreted the most likely cause of the patient's condition is multifactorial including dehydration - The results of ED evaluation were discussed with the patient including prescriptions and/or symptomatic cares (if applicable) including appropriate and responsible use, followup plan, and return precautions. The patient verbalized understanding and felt safe for discharge. - Patient discharged in satisfactory condition. Note: Click bubbles or prepopulated tarango in note writing are used for assistance with data collection and billing and are inherently more limited than narrative and other text portions of this note. Please use narrative for additional clinical history and defer to narrative/free test for any case of contradictory information. If information appears in only free text or click bubble it should be considered present or absent as reported. Please contact note medical underwriter for clarifications of clinical information or contradictory information. MDM is a brief summary, contradictory or erroneous seeming information should be clarified and full note should be reviewed. Vital Signs: Vital signs: Vital Signs Temperature 97.3 F L 03/13/22 11:35 Pulse Rate 66 03/13/22 18:22 Respiratory Rate 16 03/13/22 18:22 Blood Pressure 144/92 03/13/22 18:22 Pulse Oximetry 98 03/13/22 18:22 Oxygen Delivery Ak thod 03/13/22 11:35 MDM - Weakness Medical Decision Making 66-year-old gentleman presenting with various concerns. Patient has positive orthostatics and evidence of dehydration which significantly proved after IV fluids. Incidental neck mass concerning for cancer discussed with patient. Patient is appropriate for further outpatient evaluation. Medical Records I reviewed the patient's medical records. Lab Data I reviewed the patient's lab results. : 03/13/22 12:17 03/13/22 12:17 Radiology Impressions Chest X-Ray 03/13/22 11:56 Impression: Negative chest. Neck CT 03/13/22 11:56 IMPRESSION: 1. Nodular soft tissue fat-containing mass in the RIGHT dorsal subcutaneous neck adipose tissue likely involving the RIGHT trapezius muscle. Findings suspicious for liposarcoma and recommend further evaluation with ultrasound- guided biopsy and surgical consultation. MRI neck without and with gadolinium enhancement would also be helpful for additional differential assessment and to assess extent of intramuscular invasion 2. No cervical lymphadenopathy. 3. Normal salivary glands. 4. A few tiny thyroid nodules. Notified Oren Summers MD at 03/13/2022 1:09 PM. Abdomen Ultrasound 03/13/22 13:43 IMPRESSION: 1. Normal liver. 2. Normal gallbladder. 3. No hydronephrosis in RIGHT kidney. 4. Pancreas not visualized. Laboratory Results WBC 6.4 10^3/uL (4.0-10.0) 03/13/22 12:17 RBC 4.34 10^6/uL (4.1-5.3) 03/13/22 12:17 Hgb 13.1 g/dL (11.7-16.6) 03/13/22 12:17 Hct 39.5 % (42.0-52.0) L 03/13/22 12:17 MCV 91.0 fl (80-94) 03/13/22 12:17 MCH 30.2 pg (28.0-34.0) 03/13/22 12:17 MCHC 33.2 g/dL (30.0-36.0) 03/13/22 12:17 RDW 13.0 % (12.1-15.1) 03/13/22 12:17 Plt Count 179 10^3/cmm (130-400) 03/13/22 12:17 MPV 11.3 fL (7.4-10.4) H 03/13/22 12:17 Neut % (Auto) 68.3 % 03/13/22 12:17 Lymph % (Auto) 18.5 % 03/13/22 12:17 [place] % (Auto) 12.7 % 03/13/22 12:17 Eos % (Auto) 0.0 % 03/13/22 12:17 Baso % (Auto) 0.2 % 03/13/22 12:17 Neut # (Auto) 4.36 10^3/uL (1.8-7.7) 03/13/22 12:17 Lymph # (Auto) 1.2 10^3/uL (0.8-4.8) 03/13/22 12:17 [place] # (Auto) 0.8 10^3/uL (0.2-0.9) 03/13/22 12:17 Eos # (Auto) 0.0 10^3/uL (0.0-0.8) 03/13/22 12:17 Baso # (Auto) 0.0 10^3/uL (0.0-0.1) 03/13/22 12:17 Nucleated RBC % (auto) 0 % 03/13/22 12:17 Nucleated RBCs # 0.0 /100WBC 03/13/22 12:17 Sodium 137 mmol/L (136-145) 03/13/22 12:17 Potassium 3.9 mmol/L (3.5-5.1) 03/13/22 12:17 Chloride 101 mmol/L (98-107) 03/13/22 12:17 Carbon Dioxide 23 mmol/L (22-29) 03/13/22 12:17 Anion Gap 16.9 (5-19) 03/13/22 12:17 BUN 18 mg/dL (8-23) 03/13/22 12:17 Creatinine 1.4 mg/dL (0.7-1.2) H 03/13/22 12:17 GFR Calculation 50.9 mL/min (90-130) L 03/13/22 12:17 Glucose 93 mg/dL (65-115) 03/13/22 12:17 Calculated Osmolality 286 mOsm/kg (285-295) 03/13/22 12:17 Lactate 1.0 mmol/L (0.5-2.2) 03/13/22 12:17 Calcium 8.4 mg/dL (8.5-10.5) L 03/13/22 12:17 Magnesium 2.3 mg/dL (1.7-2.3) 03/13/22 12:17 Total Bilirubin 0.2 mg/dL (0.15-1.2) 03/13/22 12:17 AST 44 U/L (0-40) H 03/13/22 12:17 ALT 57 U/L (0-41) H 03/13/22 12:17 Alkaline Phosphatase 140 U/L (40-130) H 03/13/22 12:17 Troponin T Baseline 8 ng/L (0-15) 03/13/22 12:17 Troponin T 120 Minute 6.95 ng/L (0-15) 03/13/22 14:55 Delta Troponin T -1.05 ABS# (0-10) L 03/13/22 14:55 C-Reactive Protein 4.7 mg/L (0.0-4.9) 03/13/22 12:17 NT-Pro-B Natriuret Pep 273 pg/mL (0-125) H 03/13/22 12:17 Total Protein 5.9 g/dL (6.6-8.7) L 03/13/22 12:17 Albumin 3.6 g/dL (3.5-5.2) 03/13/22 12:17 Globulin 2.3 g/dL (1.3-4.6) 03/13/22 12:17 Procalcitonin 0.21 ng/mL (0-0.5) 03/13/22 12:17 TSH 0.62 uIU/mL (0.27-4.20) 03/13/22 12:17 Urine Color Yellow (Yellow) 03/13/22 14:46 Urine Appearance Clear (CLEAR) 03/13/22 14:46 Urine pH 6 (5-7) 03/13/22 14:46 Ur Specific [place] 1.010 (1.005-1.030) 03/13/22 14:46 Urine Protein Neg (Negative) 03/13/22 14:46 Urine Glucose (UA) Norm (Normal) 03/13/22 14:46 Urine Ketones Negative (Negative) 03/13/22 14:46 Urine Blood 2+ (Negative) H 03/13/22 14:46 Urine Nitrate Negative (Negative) 03/13/22 14:46 Urine Bilirubin Neg (Negative) 03/13/22 14:46 Urine Urobilinogen Norm mg/dL (Negative) 03/13/22 14:46 Ur Leukocyte Esterase Negative (Negative) 03/13/22 14:46 Urine RBC 0-4 /hpf (0-2) H 03/13/22 14:46 Urine WBC 0-4 /hpf (0-5) H 03/13/22 14:46 Ur Squamous Epith Cells 0-4 /hpf (0-5) H 03/13/22 14:46 Amorphous Sediment Not Reportable 03/13/22 14:46 Urine Bacteria Trace /hpf (NONE) 03/13/22 14:46 Hyaline Casts 5-10 /lpf H 03/13/22 14:46 Discharge Plan Discharge Patient Disposition: Home Clinical Impression: Generalized weakness, Orthostatic hypotension, Mass in neck, Transaminitis, CKD (chronic kidney disease) Condition: Stable Prescriptions: No Action Linzess 290 mcg capsule 290 mcg PO DAILY Qty: 90 3RF lisinopril-hydrochlorothiazide 20-25 mg tablet 1 tab PO DAILY pantoprazole 40 mg tablet,delayed release (DR/EC) 40 mg PO DAILY Qty: 90 8RF ondansetron 4 mg tablet,disintegrating 4 mg PO Q8H Qty: 20 0RF amiodarone [Pacerone] 200 mg tablet 200 mg PO DAILY Aspir-81 81 mg Tablet,Delayed Release (Dr/Ec) 81 mg PO DAILY Xarelto 20 mg tablet 20 mg PO DAILY Rx Instructions: TAKE FOR 30 DAYS POST SURGERY THEN GO BACK TO 81MG ASPIRIN DAILY ON 03/26/22. Vitamin B-12 2,500 mcg Tablet, Sublingual 2,500 mcg SUBLINGUAL BID Discharge Orders: Discharge ED (Routine); Ordered 03/13/22 Ordered By: Oren Summers Referrals: Jason Toscano MD [Primary Care Provider] - Discharge Diet: Usual diet Discharge Activity: Increase activity as tolerated Patient Instructions: Dehydration (ED), Weakness (ED), Soft Tissue Mass (ED), Opioid Safety Activity Restrictions/Additional Instructions: Thank you for visiting the emergency department. You were seen and evaluated for various concerns. The exact cause of your symptoms is unclear. Generalized weakness may be related to dehydration. As discussed you do have concerning findings regarding your soft tissue neck mass. Appearance on imaging is concerning for liposarcoma which is a type of malignant cancer. In order to further characterize this I will message case management for outpatient ultrasound-guided biopsy and MRI. Please follow-up with your primary care provider. Please return to the emergency department for anything that you are concerned about and feel needs emergency department evaluation. Coding Level of Care Code ED Internal Security Manager for Mika Fwd Exam Comprehensive
--- NOTE | 2022-03-13 11:39 | ECG_ITS ---
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 Measurements Intervals [place] Rate: 63 P: 69 ND: 151 QRS: 60 QRSD: 105 T: 68 QT: 460 QTc: 474 Interpretive Statements SINUS RHYTHM WITH OCCASIONAL SUPRAVENTRICULAR PREMATURE COMPLEXES PROLONGED QT INTERVAL Compared to ECG 09/09/2021 20:22:49 Prolonged QT interval now present Atrial fibrillation no longer present T-wave abnormality no longer present Electronically Signed On 03-14-2022 9:19:45 CDT by Quinn Pena M.D. [id number]
--- NOTE | 2022-03-13 11:56 | CT_ITS ---
WS: [id number] CT NECK TECHNIQUE: Noncontrast CT of the neck with coronal and sagittal reformatted images. CLINICAL INFORMATION: posterior right tender mass COMPARISON: None. DLP: 304.[address] scans at [facility] use at least one of these dose optimization techniques: automated e xposure control; mA and/or kV adjustment per patient size (includes targeted exams where dose is matc hed to clinical indication); or iterative reconstruction. FINDINGS: Contrast not administered. Heterogeneous nodular soft tissue mass in the dorsal subcutaneous soft tis sues extending to the strap muscles. This measures approximately 5.1 x 5.6 cm with adjacent slight sa tellite nodularity. Small satellite nodule just to the LEFT of midline at the apex of the lesion. Fin dings are nonspecific but suspicious for liposarcoma considering the soft tissue components and nodul arity with associated macroscopic fat. This can be further evaluated with MRI without and with gadoli nium enhancement and ultrasound-guided biopsy. This appears to involve the superficial RIGHT trapeziu s with tenting and retraction Mass directly abuts the RIGHT dorsal strap muscles and midline nuchal ligament with mild mass effect . MRI would be more sensitive to evaluate for intramuscular invasion. Lesion extends from approximate ly C2-C5. Parotid glands are normal. Submandibular degree glands are normal. Normal posterior nasopharynx and p arapharyngeal fat. No evidence of supraglottic or glottic mass. Normal subglottic airway. Small subce ntimeter nodules in the thyroid. Mastoid air cells well aerated. Mild mucosal thickening in the ethmo id air cells. Lung apices are well aerated. Mild spondylitic changes cervical spine. No cervical lymp hadenopathy. CT/CT neck wo con 53215 IMPRESSION: 1. Nodular soft tissue fat-containing mass in the RIGHT dorsal subcutaneous ne ck adipose tissue likely involving the RIGHT trapezius muscle. Findings suspici ous for liposarcoma and recommend further evaluation with ultrasound-guided bio psy and surgical consultation. MRI neck without and with gadolinium enhancement would also be helpful for additional differential assessment and to assess ext ent of intramuscular invasion 2. No cervical lymphadenopathy. 3. Normal salivary glands. 4. A few tiny thyroid nodules. Notified Oren Summers MD at 03/13/2022 1:09 PM.
--- NOTE | 2022-03-13 11:56 | XR_ITS ---
WS: [id number] Portable AP upright chest, 03/13/2022 Clinical Data: bradycardia, weakness Comparison: Portable chest, 09/09/2021. Findings: No nodules, masses or effusions are seen. The heart is normal. The pulmonary vascularity is not increased. No pneumonia or pneumothorax is seen. There are old right rib fractures. Monitor lead s are on the chest wall. XR/XR chest 1V portable [id number] Impression: Negative chest.
--- NOTE | 2022-03-13 11:56 | CT_ITS ---
WS: [id number] CT HEAD TECHNIQUE: Noncontrast CT of the head obtained from the skullbase to the vertex. CLINICAL INFORMATION: RUE weakness, gait difficulty COMPARISON: None. DLP: 1064.[address] scans at [facility] use at least one of these dose optimization techniques: automated e xposure control; mA and/or kV adjustment per patient size (includes targeted exams where dose is matc hed to clinical indication); or iterative reconstruction. FINDINGS: No evidence of intracranial hemorrhage or mass effect. Ventricular system and basal cisterns are lujan nt. Mild small vessel changes with mild parenchymal volume loss. No extra-axial fluid collections. No evidence of mass or mass effect. Normal leigh-white differentiation. Mild mucosal thickening ethmoid air cells. Mastoid air cells well aerated. IMPRESSION: 1. No evidence of intracranial hemorrhage or mass effect. 2. Multiple vessel changes with mild parenchymal volume loss. 3. No acute intracranial findings.
[2022-03-13] MEDS: lactated ringers 1,000 ML 999 ML IV ×2 (12:14→14:49)
[2022-03-13 12:25] LABS: Basophils % 0.2 %; Hematocrit 39.5 % (42.0-52.0); Hemoglobin 13.1 g/dL (11.7-16.6); Lymphocytes # 1.2 10^3/uL (0.8-4.8); Lymphocytes % 18.5 %; Mean Corpuscular HGB Conc 33.2 g/dL (30.0-36.0); Mean Corpuscular Hemoglobin 30.2 pg (28.0-34.0); Mean Platelet Volume 11.3 fL (7.4-10.4); Monocytes # 0.8 10^3/uL (0.2-0.9); Monocytes % 12.7 %; Neutrophils # 4.36 10^3/uL (1.8-7.7); Neutrophils % 68.3 %; Nucleated Red Blood Cells % 0 %; Platelet Count 179 10^3/cmm (130-400); Red Blood Count 4.34 10^6/uL (4.1-5.3); White Blood Count 6.4 10^3/uL (4.0-10.0)
[2022-03-13 12:54] LABS: Procalcitonin 0.21 ng/mL (0-0.5); Thyroid Stimulating Hormone 0.62 uIU/mL (0.27-4.20)
[2022-03-13 12:57] LABS: Troponin(5th) Baseline 8 ng/L (0-15)
[2022-03-13 13:16] LABS: Albumin Level 3.6 g/dL (3.5-5.2); Alkaline Phosphatase 140 U/L (40-130); C Reactive Protein 4.7 mg/L (0.0-4.9); Chloride 101 mmol/L (98-107); Potassium 3.9 mmol/L (3.5-5.1); Sodium 137 mmol/L (136-145)
[2022-03-13 13:32] LABS: Alanine Aminotransferase 57 U/L (0-41); Anion Gap 16.9 (5-19); Aspartate Amino Transferase 44 U/L (0-40); Blood Urea Nitrogen 18 mg/dL (8-23); Calcium 8.4 mg/dL (8.5-10.5); Carbon Dioxide 23 mmol/L (22-29); Globulin 2.3 g/dL (1.3-4.6); Glomerular Filtration Rate 50.9 mL/min (90-130); Glucose 93 mg/dL (65-115); Magnesium 2.3 mg/dL (1.7-2.3); Osmolality Calculated 286 mOsm/kg (285-295); Total Bilirubin 0.2 mg/dL (0.15-1.2); Total Protein 5.9 g/dL (6.6-8.7)
--- NOTE | 2022-03-13 13:43 | US_ITS ---
WS: [facility]2 ULTRASOUND ABDOMEN LIMITED CLINICAL INFORMATION: ruq biliary, new transaminitis, generalized illness COMPARISON: CT September 08, 2021 FINDINGS: Liver Size: Normal. Craniocaudal length: 15.7 cm. Echogenicity: Normal. Surface nodularity: None. Mass (size and location): None. Bile ducts Intrahepatic ducts: Normal. Common bile duct diameter: 0.6 cm. Gallbladder Normal. Gallstones: None. Gallbladder sludge: None. Gallbladder wall thickening: None. Pericholecystic fluid: None. Sonographic Goetz sign: Absent. Pancreas Not well seen Right kidney: Normal. Hydronephrosis: None. Size: 11.2 cm x 6.2 cm x 5.5 cm. Abdominal aorta and IVC Visualized portions are normal. Ascites: None. US/US abdomen limited [id number] IMPRESSION: 1. Normal liver. 2. Normal gallbladder. 3. No hydronephrosis in RIGHT kidney. 4. Pancreas not visualized.
[2022-03-13 13:47] LABS: NT Pro B Type Natriuretic Pept 273 pg/mL (0-125)
[2022-03-13 13:52] VITALS: BP 125/69; BP 139/90; BP 99/77; PULSE 50; PULSE 56; PULSE 67
--- NOTE | 2022-03-13 14:45 | ECG_ITS ---
[facility] Test Date: 2022-03-13 Pat Name: Luke Andrade Department: Room: Gender: Male Director [place]: : 1955 Requested By: Oren Summers Order Number: [id number] Colin MD: Quinn Pena M.D. Measurements Intervals [place] Rate: 61 P: 76 ND: 158 QRS: 65 QRSD: 105 T: 65 QT: 488 QTc: 495 Interpretive Statements SINUS RHYTHM WITH FREQUENT VENTRICULAR PREMATURE COMPLEXES WITH OCCASIONAL SUPRAVENTRICULAR PREMATURE COMPLEXES PROLONGED QT INTERVAL Compared to ECG 03/13/2022 11:39:13 Ventricular premature complex(es) now present Electronically Signed On 03-14-2022 9:27:47 CDT by Quinn Pena M.D. [id number]
[2022-03-13 15:05] LABS: Add Urine Microscopic? YES; Bilirubin Urine Neg (Negative); Blood Urine 2+ (Negative); Glucose Urine UA Norm (Normal); Ketones Urine Negative (Negative); Leukocyte Esterase Urine Negative (Negative); Nitrate Urine Negative (Negative); Protein Urine Neg (Negative); Urine Appearance Clear (CLEAR); Urine Color Yellow (Yellow); Urobilinogen Urine Norm (Negative); pH Urine 6 (5-7)
[2022-03-13 15:10] LABS: Add Urine Culture? No; Bacteria Urine TRACE /hpf; RBC Urine 0-4 /hpf (0-2); Squamous Epithelial Cell Urine 0-4 /hpf (0-5); WBC Urine 0-4 /hpf (0-5)
[2022-03-13 15:19] LABS: Troponin 5 2HR 6.95 ng/L (0-15)
[2022-03-13 15:35] LABS: Troponin 5 2HR Delta -1.05 ABS# (0-10)
[2022-03-13 15:36] VITALS: BP 114/79; BP 137/88; BP 155/86; PULSE 60; PULSE 67; PULSE 72
[2022-03-13 16:00] VITALS: BP 148/74; PULSE 59; RESP 18; O2SAT 96
[2022-03-13 17:00] VITALS: BP 165/94; PULSE 56; RESP 16; O2SAT 97
--- NOTE | 2022-03-13 17:08 | PC.NURSE ---
PT AMB [address] JUAREZ VO.
[2022-03-13 18:22] VITALS: BP 144/92; PULSE 66; RESP 16; O2SAT 98
--- NOTE | 2022-03-19 14:38 | DCPLANNER ---
general manager [employer] had message to schedule an outpatient US guided ultrasound and an MRI for patient. general manager [employer] faxed signed orders to centralized scheduling, who will call patient with appointment information.
== END 2022-03-13 18:31 | disposition home or self-care (01) ==
PROVIDERS: Emergency Provider Emergency Medicine; PCP Internal Medicine
DX: R53.1 Weakness (principal); I95.1 Orthostatic hypotension; R22.1 Localized swelling, mass and lump, neck; R74.01 Elevation of levels of liver transaminase levels; N18.9 Chronic kidney disease, unspecified; Z79.82 Long term (current) use of aspirin; Z87.891 Personal history of nicotine dependence
CPT/HCPCS: 70450; 70490; 71045; 76705; 80053; 81001; 83605; 83735; 83880; 84145; 84443; 84484; 85025; 86140; 87040; 93005; 96360; 99285